=== PATIENT | male | born 1950 | race Caucasian/White ===

== ENCOUNTER 2016-10-15 10:55 | Outpatient (CLI) | payer BC ==
[~2016-10-15] VITALS: Ht 172.7 cm; Wt 106.4 kg
--- NOTE | ~2016-10-15 | HEMODYNAMI ---
PATIENT:CHAVO FAN MEDICAL RECORD: [id number] : 54 LOCATION:DMichaelCAT ADMISSION DATE: 10/15/16 Generatedon:10/15/201613:22 Patient name: CHAVO FAN Patient #: [id number] SSN: : Date of study: 10/15/2016 Page: Of Hemodynamic Procedure Report Patient Data Patient Demographics Procedure consent was obtained First Name: CHAVO Gender: Male Last Name: MENG : 1950 [facility] Initial: ALF Age: 66 year(s) Patient #: [id number] Race: Unknown Additional ID: [id number] Contact details [address]: [address] [place] [address] State: [place] City: [place] Zip code: [address] Past Medical History Allergies: No known allergies Admission Admission Data Admission Date: 10/15/2016 Admission Time: 10:55 Height (in.): 69 BSA: 2.21 (m2) Height (cm.): 175.26 BMI: 34.56 (kg/m2) Weight (lbs.): 234 Weight (kg.): 106.14 Lab Results Lab Result Date: 10/15/2016 Lab Result Time: 12:00 Biochemistry Name Units Result Min Max BUN mg/dl 24 --(----)-* 7 18 Creatinine mg/dl 0.9 --(-*--)-- 0.6 1.3 CBC Name Units Result Min Max Hematocrit % 41.8 -*(----)-- 42 54 Hemoglobin g/dl 14.8 --(-*--)-- 13.5 17.5 Coagulation Name Units Result Min Max INR units 1.07 --(--*-)-- 0.85 1.17 PT sec 13.7 --(--*-)-- 11.6 15 Procedure Procedure Types Cath Procedure Diagnostic Procedure LHC LHC w/Coronaries Miscellaneous Procedures Moderate Sedation up to 30 minutes Procedure Description Procedure Date Procedure Date: 10/15/2016 Procedure Start Time: 13:05 Procedure End Time: 13:17 Procedure Staff Name Function Alf Riley MD Performing Physician Sophie Garcia RT Scrub Michael Boggs RN Nurse Bruce Flores RT Monitor Procedure Data Cath Procedure Fluoroscopy Diagnostic fluoroscopy Total fluoroscopy Time: 1.6 time: 1.6 min min Diagnostic fluoroscopy Total fluoroscopy dose: 801 dose: 801 mGy mGy Contrast Material Contrast Material Type Amount (ml) Isovue 300 64 Entry Location Entry Primary Successful Side Size Upsize Upsize Entry Closure Aviles ccessful Closure Location (Fr) 1 (Fr) 2 (Fr) Remarks Device Remarks Radial Right 6 Fr Mechanical artery Short Compression Estimated blood loss: 5 ml Diagnostic catheters Device Type Used For End Catheter Placement Diagnostic Terumo 5Fr Procedure [place] 110cm catheter Procedure Complications No complications Procedure Medications Medication Administration Route Dosage Oxygen NC 2 l/min Lidocaine 2% added to field 20 Heparin Flush Bag added to field 2 bags (1000units/500ml NS) 0.9% NaCl I.V. 100 ml/hr Radial Cocktail I.A. 1 syringe (Verapomil 2mg/Nitro 400mcg/Heparin 1500units) Versed I.V. 1 mg Fentanyl I.V. 50 mcg Versed I.V. 1 mg Fentanyl I.V. 50 mcg Hemodynamics Rest BSA: 2.21 (m2) HGB: 14.8 (g/dl) O2 Consumption: Estimated: 274.21 (ml/min) O2 Co nsumption indexed: Estimated:124.08 (ml/min/m) Heart Rate: 89 (bpm) Pressure Samples Time Site Value (mmHg) Purpose Heart Use Rate(bpm) 13:07 LV 90/21,20 EDP 97 13:08 AO 89/48(67) Pullback 94 13:08 LV 81/9,14 Pullback 94 Gradients Valve Time Site 1 Site 2 Mean SEP/DFP Peak To Heart Use (mmHg) (sec/min) Peak Rate (mmHg) (bpm) Aortic 13:08 LV AO 0 11 0 94 81/9,14 89/48(67) Calculations Valve P-P Mean Valve Index Valve Source Name Gradient Area Flow (cm2) Aortic 0 0 0 0 Snapshots Pre Cath Intra NCS Post Cath Vital Signs Time Heart Resp SPO2 NIBP (mmHg) Rhythm Pain Sedation Rate (ipm) (%) Status Level (bpm) 12:53:00 92 14 99 128/90(102) A-Fib 0 (11) 10(A) , No pain 12:57:08 93 18 95 118/90(100) A-Fib 0 (11) 10(A) , No pain 13:01:16 97 17 98 108/72(101) A-Fib 0 (11) 10(A) , No pain 13:05:22 91 18 97 100/84(92) A-Fib 0 (11) 9(A) , No pain 13:09:34 92 16 96 92/58(74) A-Fib 0 (11) 9(A) , No pain 13:13:37 86 16 97 100/70(86) A-Fib 0 (11) 10(A) , No pain Medications Time Medication Route Dose Verified Delivered Reason Notes Effectiveness by by 12:55:59 Oxygen NC 2 l/min Alf Rodriguez used for [facility] Chavo Boggs RN procedure MD 12:56:06 Lidocaine 2% added 20ml Alf Milner for local to vial [facility] anesthetic field MD [place] 12:56:13 Heparin Flush added 2 bags Alf Milner used for Bag to [facility] procedure (1000units/500ml field MD [place] NS) 12:56:22 0.9% NaCl I.V. 100 Alf Rodriguez Per ml/hr [facility] Chavo Boggs RN physician 12:57:57 Versed I.V. 1 mg Alf Rodriguez for sedation [facility] Chavo Boggs RN, MD 12:58:04 Fentanyl I.V. 50 mcg Alf Rodriguez for sedation [facility] Chavo Boggs RN, MD 13:06:17 Radial Cocktail I.A. 1 Alf Milner for (Verapomil syringe [facility] vasodilation 2mg/Nitro MD [place] 400mcg/Heparin 1500units) 13:06:23 Versed I.V. 1 mg Alf Rodriguez for sedation [facility] Chavo Boggs RN, MD 13:06:26 Fentanyl I.V. 50 mcg Alf Rodriguez for sedation [facility] Chavo Boggs RN, MD Procedure Log Time Note 12:23:53 Patient Height : 175.26 cm 12:23:59 Patient Weight : 106.14 kg 12:24:44 Diagnostic Cath status Elective 12:24:46 Michael Boggs RN sent for patient. Start room use. 12:24:48 Time tracking: Regular hours 12:24:54 Plan of Care:Hemodynamics will remain stable., Cardiac rhythm will remain stable., Comfort level will be maintained., Respiratory function will remain adequate., Patient/ family verbilizes understanding of procedure., Procedure tolerated without complication., Recovers from procedure without complications.. 12:37:09 Patient received from Pre/Post Procedure Room to CCL 2 Alert and oriented. Tansferred to table in Supine position. 12:37:10 Warm blankets applied, and luis hugger turned on for patient comfort. 12:37:11 Correct patient and procedure confirmed by team. 12:37:13 Signed procedure consent form obtained from patient. 12:37:14 ECG and BP/O2 sat monitors applied to patient. 12:37:20 H&P Date Dictated: 10/15/2016 Within 30 days and on chart.. 12:37:21 Pre-procedure instructions explained to patient. 12:37:22 Pre-op teaching completed and patient verbalized understanding. 12:37:24 Family in patients room. 12:37:25 Patient NPO since Midnight. 12:37:34 Patient allergic to No known allergies 12:37:39 Is the patient allergic to Iodine/contrast media? No. 12:37:48 Is patient on blood thinner?Yes 12:40:20 Patient diabetic? No. 12:40:26 Previous problem with sedation/anesthesia? No ? 12:40:27 Snore? Yes 12:40:28 Sleep apnea? No 12:40:29 Deviated septum? No 12:40:31 Opens mouth fully? Yes 12:40:33 Sticks out tongue? Yes 12:40:34 Airway obstruction? No ? 12:40:36 Dentures? No ? 12:50:26 Modified Armaan's test Ulnar < 7 seconds 12:50:28 Patient pain scale 0/10 ?. 12:50:49 IV patent on arrival in left forearm with 0.9% NaCl at [facility]. 12:51:30 Lab Result : Creatinine 0.9 mg/dl 12:51:30 Lab Result : BUN 24 mg/dl 12:51:30 Lab Result : Hemoglobin 14.8 g/dl 12:51:30 Lab Result : Hematocrit 41.8 % 12:51:30 Lab Result : INR 1.07 units 12:51:30 Lab Result : PT 13.7 sec 12:51:34 Lab results completed and on chart. 12:51:36 Right Radial & Right Groin area was prepped with chlora-prep and draped in sterile fashion 12:51:43 Alarms reviewed by R. N. 12:51:44 Sharps counted by scrub and verified by R.N. 12:51:46 Use device set Radial Dx 12:51:47 MBrace Wrist Support opened to sterile field. 12:51:49 Tegaderm 4 x 4 opened to sterile field. 12:51:50 Acist Manifold opened to sterile field. 12:51:50 Acist Hand Control opened to sterile field. 12:51:51 Acist Syringe opened to sterile field. 12:51:52 Medline Cath Pack opened to sterile field. 12:51:52 Bag Decanter opened to sterile field. 12:51:53 Terumo 6Fr Slender Glidesheath opened to sterile field. 12:51:53 St Otto 260cm J .035 wire opened to sterile field. 12:51:57 Vital chart was started 12:51:59 Baseline sample Acquired. 12:52:15 Rhythm: atrial fibrillation 12:52:16 Full Disclosure recording started 12:55:59 Oxygen 2 l/min NC was administered by Michael Boggs RN; used for procedure; 12:56:06 Lidocaine 2% 20ml vial added to field was administered by Alf Riley MD; for local anesthetic; 12:56:13 Heparin Flush Bag (1000units/500ml NS) 2 bags added to field was administered by Alf Riley MD; used for procedure; 12:56:22 0.9% NaCl 100 ml/hr I.V. was administered by Michael Boggs RN; Per physician; 12:56:23 Physician arrived 12:56:23 --------ALL STOP TIME OUT------ 12:56:23 Final Timeout: patient, procedure, and site verified with staff and physician. All members of the team are in agreement. 12:56:35 Right Radial & Right Groin site verified by team. 12:56:37 Physical assessment completed. ASA score P 2 - A patient with mild systemic disease as per Alf Riley MD. 12:56:40 Sedation plan: IV Moderate Sedation Versed, Fentanyl 12:57:57 Versed 1 mg I.V. was administered by Michael Boggs RN; for sedation; 12:58:04 Fentanyl 50 mcg I.V. was administered by Michael Boggs RN; for sedation; 13:01:07 Zero performed for pressure channel P1 13:05:36 Procedure started. 13:05:40 Local anesthetic to right radial artery with Lidocaine 2% by Alf Riley MD.INITIAL ACCESS ONLY 13:05:47 A 6 Fr Short sheath was inserted into the Right Radial artery 13:06:11 A Diagnostic Terumo 5Fr [place] 110cm catheter was advanced over the wire and used for Procedure. 13:06:17 Radial Cocktail (Verapomil 2mg/Nitro 400mcg/Heparin 1500units) 1 syringe I.A. was administered by Alf Riley MD; for vasodilation; 13:06:23 Versed 1 mg I.V. was administered by Michael Boggs RN; for sedation; 13:06:26 Fentanyl 50 mcg I.V. was administered by Michael Boggs RN; for sedation; 13:08:00 LV gram done using ZARATE 13:08:02 Injector settings: Ml/sec: 5, Volume: 15, 13:08:12 EF : 55 % 13:08:49 RCA angiography performed. 13:09:25 RCA angiography performed. 13:12:45 Catheter removed. 13:13:04 Terumo TR Band Standard opened to sterile field. 13:13:10 Sheath removed intact; hemostasis achieved with Mechanical Compression to the Right Radial artery. 13:13:16 Procedure ended.(Physican Out) 13:14:19 Fluoroscopy time 01.60 minutes. 13:14:22 Fluoroscopy dose: 801 mGy 13:14:22 Flurop Dose total: 801 13:14:26 Contrast amount:Isovue 300 64ml. 13:14:27 Sharps counted by scrub and verified by R.N. 13:14:29 TR band inflated with 12cc of air. 13:14:30 Insertion/operative site no bleeding no hematoma. 13:14:38 Post right radial artery:stable, soft, clean and dry 13:14:40 Post Procedure Pulses reassessed and unchanged 13:14:44 Post-procedure physical assessment completed. ASA score P 2 - A patient with mild systemic disease as per Alf Riley MD. 13:14:46 Post procedure rhythm: unchanged. 13:14:48 Estimated blood loss: 5 ml 13:14:50 Post procedure instruction explained to patient.Patient verbalizes understanding. 13:14:50 Patient needs reinforcement of post procedure teaching. 13:16:35 Procedure type changed to Cath procedure, Diagnostic procedure, LHC, LHC w/Coronaries, Miscellaneous Procedures, Moderate Sedation up to 30 minutes 13:16:51 Procedure and supply charges have been captured, reviewed, submitted and are correct. 13:16:55 Procedure Complication : No complications 13:16:57 Vital chart was stopped 13:16:57 See physician's report for complete and final results. 13:16:58 Report given to Pre/Post Procedure Room. 13:17:02 Patient transfered to Pre/Post Procedure Room with Stretcher. 13:17:04 Procedure ended. 13:17:04 Full Disclosure recording stopped 13:17:14 End room use (Document Last) Device Usage Item Name Manufacture Quantity Catalog Hospital Part Current Minimal Lot# / Number Charge Number Stock Stock Serial# Code [place] [address] 140-0250-00 [id number] [id number] [id number] 5 Wrist Vascular Support Dynamics Tegaderm 4 3M 1 [id number] [id number] [id number] 354286 5 x 4 Acist Acist 1 24775 541476 396340 998886 5 Manifold [employer] Inc Acist Hand Acist 1 33354 864353 404107 572319 5 Control Medical Systems Inc Acist Acist 1 02289 014993 210731 574746 20 Syringe Medical Systems Inc Medline Cardinal 1 [id number] 85999 025430 5 Cath Pack Health Bag Microtek 1 2001S 605426 79710 901255 5 Decanter [employer] Inc. Terumo 6Fr Terumo 1 [id number] 559263 757220 878405 [address] St Otto 1 350481 604532 836341 816224 30 260cm J .035 wire Diagnostic Terumo 1 [id number] [id number] 075961 376503 5 Terumo 5Fr [place] 110cm catheter Terumo TR Terumo 1 [id number] 582936 095165 40 Band Standard Signature Audit [place] Stage Time Signature Unsigned Intra-Procedure 10/15/2016 Bruce Flores 1:21:58 PM RT(R) Signatures Monitor : Bruce Flores RT Signature : Date : Time : [facility] [address] [facility] [facility] [place] [address]
[2016-10-15] MEDS ORDERED: COUMADIN5 MG PO (11:09)
[2016-10-15] MEDS ORDERED: PRAVACHOL40 MG PO (11:13)
[2016-10-15] MEDS ORDERED: COREG12.5 MG PO (11:14)
[2016-10-15] MEDS ORDERED: BETAPACE 80 MG80 MG PO (11:14)
[2016-10-15] MEDS ORDERED: RELAFEN500 MG PO (11:15)
[2016-10-15 11:19] VITALS: BP 132/96; Ht 172.7 cm; Wt 106.4 kg
[2016-10-15 11:38] LABS: BASOPHILS 0.7 % (0-2); EOSINOPHILS 3.7 % (0-7); HEMATOCRIT 41.8 % (42.0-54.0); HEMOGLOBIN 14.8 g/dL (13.5-17.5); IMMATURE GRANULOCYTES 0.4 % (0-5); LYMPHOCYTES 23.2 % (15-50); MCH 35.2 pg (26.0-34.0); MCHC 35.4 g/dL (31.0-37.0); MCV 99.3 fL (80.0-100.0); MEAN PLATELET VOLUME 9.7 fL (7.4-10.4); MONOCYTES 11.4 % (2-11); NEUTROPHILS 60.6 % (40-80); PLATELET COUNT 194 10x3/uL (130-400); RBC 4.21 10x6/uL (4.20-6.10); RDW 12.2 % (11.5-14.5); WBC 5.6 10x3/uL (4.8-10.8)
[2016-10-15 11:49] LABS: INR 1.07 (0.85-1.17); PROTIME 13.7 SECONDS (11.6-15.0)
[2016-10-15 11:51] LABS: CALC OSMOLALITY 279 mosm/kg (275-300); CALCIUM 8.9 mg/dL (8.5-10.1); CARBON DIOXIDE 25.5 mmol/L (21.0-32.0); CHLORIDE - SERUM 104 mmol/L (98-107); CREATININE - SERUM 0.9 mg/dL (0.6-1.3); GLUCOSE 106 mg/dL (74-106); POTASSIUM - SERUM 4.5 mmol/L (3.5-5.1); SODIUM 138 mmol/L (136-145); UREA NITROGEN 24 mg/dL (7-18); eGFR NON AFRICAN AMERICAN 90 mL/min (90-120)
--- NOTE | 2016-10-15 13:45 | NUR ---
TR BAND TO RIGHT WRIST CDI, NO BLEEDING OR HEMATOMA AT SITE. AT SIDE
--- NOTE | 2016-10-15 14:00 | NUR ---
TR BAND CDI, NO BLEEDING OR HEMATOMA AT SITE, AT SIDE, DENIES NEEDS
--- NOTE | 2016-10-15 15:50 | NUR ---
TR BAND OFF- BAND AID APPLIED AND BRACE REAPPLIED, NO HEMATOMA OR BLEEDING AT SITE, IV D'C WITH CATH TIP INTACT, WRITTEN AND VERBAL D'C INSTRUCTIONS GIVEN TO PT AND - VERBAL UNDERSTANDING NOTED. D'C HOME WITH
--- NOTE | 2016-10-17 13:55 | HP ---
PATIENT: CHAVO FAN MEDICAL RECORD: [id number] ACCOUNT: [id number] LOCATION:[facility] : 54 ADMISSION DATE: 10/15/16 HISTORY AND PHYSICAL EXAMINATION HISTORY OF PRESENT ILLNESS: A 66-year-old gentleman seen at the inpatient clinic with the new onset atrial fibrillation, dyspnea, chest tightness consistent with atrial fibrillation versus angina, underwent ischemic workup and found to have reversible ischemia. He was admitted for diagnostic angiography, ischemia is known inferiorly. PAST MEDICAL HISTORY: 1. Hypertension. 2. Hyperlipidemia. 3. Atrial fibrillation, recent onset. SOCIAL HISTORY: Nonsmoker, nondrinker. ALLERGIES: None known. REVIEW OF SYSTEMS: The patient reports easy bruising but reports no swollen glands. The patient reports no fever, no night sweats, no significant weight gain, no significant weight loss. No significant exercise tolerance. The patient reports no dry eyes, no irritation, no vision change. Patient reports no difficulty hearing and no ear pain. Patient reports no frequent nose bleeds or nose and sinus problems. Patient reports on arm pain on exertion. No shortness of breath while lying down. No history of heart murmur. Patient reports no cough, no wheezing or coughing up blood. Patient reports no abdominal pain, no vomiting. Normal appetite. No diarrhea and not vomiting blood. No nausea and no constipation. Patient reports no incontinence. No difficulty urinating. No hematuria. No increased frequency. Patient reports no muscle aches. No weakness, no arthralgias, no back pain. No swelling of the extremities. Patient reports no abnormal mole, no jaundice, no rashes. Reports no loss of consciousness. No weakness and no numbness. No seizures, dizziness, or headaches. The patient reports no depression, no sleep disturbance, feeling safe in a relationship and no alcohol abuse. Patient reports on fatigue. Reports no runny nose or sinus pressure. No itching, no hives, and no frequent sneezing. PHYSICAL EXAMINATION: GENERAL: Pleasant gentleman in no acute distress, appears stated age. HEENT: Normocephalic, atraumatic. NECK: No bruits. HEART: Irregular, rate controlled. LUNGS: Good air excursion. ABDOMEN: Soft, nontender. EXTREMITIES: Pulse 2+ with no edema. IMPRESSION: Angina, inferior ischemia on noninvasive study. PLAN: Diagnostic angiography, intervention based on the above. TRANSINT:[id number] Voice Confirmation ID: [id number] DOCUMENT ID: [id number] HISTORY AND PHYSICAL [id number] CHAVO FAN,SUNDAY Koenig MD at 1355 CC: [id number] DICTATION DATE: 10/15/16 1301 SUPERVISOR INSTRUMENT MAINTENANCE: 10/15/16 1510 [facility] CLI 10/15/16 [place] [id number] [place] [id number]
--- NOTE | 2016-10-17 13:55 | OP ---
PATIENT NAME: CHAVO FAN MEDICAL RECORD: [id number] :54 LOCATION:D.CAT ADMISSION DATE: SURGEON: SUNDAY AGUILAR MD DATE OF OPERATION: 10/15/2016 PROCEDURES: Left heart catheterization, selective coronary angiography, right radial approach. CATHETERS: [place] catheter, radial sheath. The procedure was well tolerated. The patient returned to lopez. Sheath was removed. TR band was placed. FINDINGS: Left ventriculography in 30-degree ZARATE view: Normal wall motion, normal systolic function. CORONARY ANATOMY: LEFT MAIN: Left main tapers about 70% stenosis. LAD: Best seen in the AP straight view, shows 80%-90% stenosis in proximal portion. CIRCUMFLEX: One large OM with 80% stenosis. RIGHT CORONARY ARTERY: Dominant artery, gives rise to PDA, free of disease. IMPRESSION: Left main disease. Given disease in the LAD and OM as well, probably best served for coronary bypass grafting. Dr. Gayle is to consult for this purpose. TRANSINT:[id number] Voice Confirmation ID: [id number] DOCUMENT ID: [id number] SUNDAY AGUILAR MD at 1355 CC: [id number] DICTATION DATE: 10/15/16 1322 VAMP STITCHER: 10/15/162022 [facility] CLI 10/15/16 [place] [id number] [place] [address]
== END 2016-10-15 16:00 | disposition home or self-care (01) ==
LOC: D.CATH 10:55
PROVIDERS: Internal Medicine Rheumatology
DX: I20.9 Angina pectoris, unspecified (principal); I48.91 Unspecified atrial fibrillation; I10 Essential (primary) hypertension; R94.31 Abnormal electrocardiogram [ECG] [EKG]; E78.5 Hyperlipidemia, unspecified; Z01.812 Encounter for preprocedural laboratory examination

== ENCOUNTER → 2016-10-16 16:06 | Outpatient (CLI) | payer BC ==
[2016-10-15 11:19] VITALS: BMI 35.6
[~2016-10-16 16:06] MED LIST: BETAPACE 80 MG80 MG PO; COREG12.5 MG PO; COUMADIN5 MG PO; PRAVACHOL40 MG PO; RELAFEN500 MG PO
== END | disposition home or self-care (01) ==
LOC: D.LAB 16:00 → D.US 16:30
DX: I25.10 Atherosclerotic heart disease of native coronary artery without angina pectoris (principal); Z01.812 Encounter for preprocedural laboratory examination; R09.89 Other specified symptoms and signs involving the circulatory and respiratory systems

== ENCOUNTER 2016-10-28 05:00 | Inpatient (IN) | payer BC ==
--- NOTE | 2016-10-19 12:51 | HP ---
PATIENT: CHAVO FAN MEDICAL RECORD: [id number] ACCOUNT: [id number] LOCATION:[facility] : 54 ADMISSION DATE: 10/28/16 HISTORY AND PHYSICAL EXAMINATION NameCHAVO FAN (66yo, M) ID# [id number]. Date/Time10/16/2016 02:[id number] [facility] Dept.NP_[facility] ClinicProviderEDFRANK CORDOVA MDInsuranceMed Primary: [place] Insurance # : [id number] Policy/Group # : [id number] Referring Provider Name : SAKSHI YOST Employer Name : UNKNOWN Med Secondary: [employer] Insurance # : [id number] Employer Name : UNKNOWN Prescription: CMX - Member is eligible. Prescription: OPTUMCOM - Member is ineligible. Patient found on payor's files, but not covered on date of inquiry. Chief Complaint Coronary artery disease referral for CABG evaluation Patient's Care Team Referring Provider (): SAKSHI YOST: [address] [place] [id number], , Steam Flattener: SUNDAY AGUILAR MD Patient's Pharmacies [facility] [address] (ERX): [address] [place] [id number], , Vitals BP:134/80 sitting L arm 10/16/2016 02:31 pmBP Cuff Size:adult 10/16/2016 02:31 pmHR:88,irreg 10/16/2016 02:31 pmHt:5 ft 8 in 10/16/2016 02:33 pmWt:233 lbs 10/16/2016 02:33 pmNotes:"could feel like butterflies in my chest sometimes, and I have felt really tired. I have some shortness of breath when I walk up a hill or do something strenuous. The fatigue is really the thing that bothers me." 10/16/2016 02:34 pmBMI:35.4 10/16/2016 02:33 pmAllergies Reviewed Allergies NKDAMedications Reviewed Medications Fluvirin [id number] 45 mcg (15 mcg x 3)/0.5 mL intramuscular suspension ADM 0.5ML IM UTD11/08/15 filledsurescriptsgentamicin 0.3 % eye drops06/19/16 filledCaremarknabumetone 500 mg tablet Take 1 tablet(s) twice a day by oral route.10/15/16 enteredCindy Brownpravastatin 40 mg tablet Take 1 tablet(s) every day by oral route.10/15/16 enteredCindy Brownsotalol 80 mg tablet Take 1 tablet(s) twice a day by oral route.10/15/16 enteredCindy Brownwarfarin 5mg daily10/15/16 enteredCindy BrownProblems Reviewed Problems Coronary arteriosclerosis - Onset: 10/15/2016 Family History Discussed Family History Father- Heart diseaseSocial History Discussed Social History HISTORY AND PHYSICAL [id number] CHAVO FAN Cardiology Family history of heart disease?: Y Smoking Status: Former smoker (Notes: quit 1987) High Cholesterol: Y High blood pressure: Y Overweight: Y Diabetes: N Alcohol intake: Moderate Occupation: licensed journeyman electrician Surgical History Reviewed Surgical History Other - Left hand surgery Other - hip surgery Other - appendectomy Past Medical History Discussed Past Medical History Atrial fibrillation: Y Coronary Artery Disease: Y High Blood Pressure: Y Hyperlipidemia: Y Joint Pain or Swelling: Y - arthritis knee Pain in legs when walking: Y - arthritis knee Documents for Discussion N/A Screening None recorded. HPI Dyspnea Reported by patient. Quality: dyspnea Severity: limits activity Context: walking up inclines Fatigue Reported by patient. Quality: symptoms worse during the day Severity: normal sleep patterns; change in exercise habits; changes in normal activities Duration: symptoms lasting over 2 weeks Timing: worse Associated Symptoms: no drug/alcohol withdrawal; no depression; no anxiety; no sleep disturbances; no snoring; periods of not breathing (apnea) have not been observed; no recent change in weight coronary artery disease left main ROS Patient reports exercise intolerance but reports no fever, no night sweats, no significant weight gain, and no significant weight loss. He reports palpitations but reports no chest pain, no arm pain on exertion, no shortness of breath when walking, no shortness of breath when lying down, and no known heart murmur. He reports arthralgias/joint pain but reports no muscle aches, no muscle weakness, no back pain, and no swelling in the extremities. He reports no dry eyes, no irritation, and no vision change. He reports no difficulty hearing and no ear pain. He reports no frequent nosebleeds and no nose/sinus problems. He reports no sore throat, no bleeding gums, no snor i ng, no dry mouth, no mouth ulcers, no oral HISTORY AND PHYSICAL [id number] BALTZ,CHAVO SUNDAY abnormalities, and no teeth problems. He reports no jugular vein distension and no swollen glands. He reports no cough, no wheezing, no shortness of breath, and no coughing up blood. He reports no abdominal pain, no vomiting, normal appetite, no diarrhea, not vomiting blood, no nausea, and no constipation. He reports no incontinence, no difficulty urinating, no hematuria, and no increased frequency. He reports no abnormal mole, no jaundice, and no rashes. He repor t s no loss of consciousness, no weakness, no numbness, no seizures, no dizziness, and no headaches. He reports no depression, no sleep disturbances, feeling safe in relationship, and no alcohol abuse. He reports no fatigue. He reports no swollen glands and no bruising. He reports no runny nose, no sinus pressure, no itching, no hives, and no frequent sneezing. ROS as noted in the HPI Physical Exam Patient is a 66-year-old male. Constitutional: General Appearance healthy-appearing and obese. Level of Distress NAD. Ambulation ambulating normally. Cardiovascular: Apical Impulse not displaced or no thrill. Heart Auscultation normal s1 and s2; no murmurs, rubs, or gallops; and irregularly irregular. Arterial Pulses no abdominal aorta bruits, femoral bruits, or popliteal bruits and 2+ bilateral, carotid 2+ bilateral, femoral 2+ bilateral, popliteal 2+ bilateral, and dorsalis pedis 2+ bilateral. Edema no edema or varicosities. Lungs: Repiratory Effort no dyspnea. Percussion no hyperresonance or dullness or flatne ss. Auscultation no wheezing, rhonchi, or rales / crackles and breathing sounds normal, good air movement, and CTA except as noted. Abdomen: Bowl Sounds normal. Inspection and Palpation no tenderness, guarding, masses, or rebound tenderness and soft and non-distended. Liver non-tender and no hepatomegaly. Spleen non-tender and no splenomegaly. Hernia none palpable. Musculoskeletal System: Gait And Stance normal gait and stance. Digits and Nails normal nails and no cyanosis. Joints, Bones, and Muscles limited ROM (right leg) and abnormal strength. Neurologic: Cranial Nerves grossly intact. Reflexes DTRs 2+ bilaterally throughout. Sensation grossly intact. Lymph Nodes: Lymph Nodes no cervical LAD, supraclavicular LAD, axillary LAD, or inguinal LAD. Eyes: Lids and Conjunctivae no discharge or pallor and non-injected. Pupils PERRLA. Cornea grossly intact. EOM EOMI. Lens clear. Sclerae non-icteric. Neck: Neck no masses, enlarged lymph nodes, or carotid bruits and supple and trachea midline; bull neck. Thyroid no enlargement or nodules and non-tender. Skin: Inspection and Palpation no rash, lesions, ulcers, jaundice, or abnormal nevi. Assessment / Plan occlusive coronary artery disease 1. Coronary arteriosclerosis I25.10: Atherosclerotic heart disease of [place] coronary artery without angina HISTORY AND PHYSICAL [id number] CHAVO FAN pectoris Discussion Notes The patient would benefit from coronary artery bypass. I have discussed his disease process with him and his family in detail as well as the alternative methods of treatment we discussed coronary artery bypass including the expected benefits and risk which include bleeding, infection, stroke, , and the imponderables. He understands all of the above and wishes to proceed with planned surgery . Stop Coumadin 23 October and scheduled coronary bypass for the 28 of October LING CORDOVA MD at 1251 CC: [id number] DICTATION DATE: 10/16/16 1415 ENAMEL APPLIER: KAVYA 10/17/16 1126 PRE IN [facility] [address] [place] [address]
[2016-10-25 13:05] LABS: BASOPHILS 0.3 % (0-2); EOSINOPHILS 4.1 % (0-7); HEMATOCRIT 42.3 % (42.0-54.0); HEMOGLOBIN 15.2 g/dL (13.5-17.5); IMMATURE GRANULOCYTES 0.2 % (0-5); LYMPHOCYTES 21.8 % (15-50); MCH 35.2 pg (26.0-34.0); MCHC 35.9 g/dL (31.0-37.0); MCV 97.9 fL (80.0-100.0); MEAN PLATELET VOLUME 9.5 fL (7.4-10.4); MONOCYTES 11.3 % (2-11); NEUTROPHILS 62.3 % (40-80); PLATELET COUNT 201 10x3/uL (130-400); RBC 4.32 10x6/uL (4.20-6.10); WBC 6.4 10x3/uL (4.8-10.8)
[2016-10-25 13:14] LABS: HEMOGLOBIN A1C 6.2 % (4.8-6.0)
[2016-10-25 13:20] LABS: APTT 29.4 SECONDS (22.8-39.4); INR 1.19 (0.85-1.17); PROTIME 14.9 SECONDS (11.6-15.0)
[2016-10-25 13:34] LABS: APPEARANCE CLEAR (CLEAR); BILIRUBIN NEGATIVE (NEGATIVE); COLOR YELLOW (YELLOW); GLUCOSE NEGATIVE (NEGATIVE); KETONE NEGATIVE (NEGATIVE); NITRITE NEGATIVE (NEGATIVE); PROTEIN NEGATIVE (NEGATIVE); SPECIFIC GRAVITY 1.015 (1.005-1.020); UROBILINOGEN NORMAL (NORMAL)
[2016-10-25 13:35] LABS: ALKALINE PHOSPHATASE 38 U/L (46-116); ALT (SGPT) 29 U/L (10-68); CALC OSMOLALITY 273 mosm/kg (275-300); CALCIUM 8.9 mg/dL (8.5-10.1); CARBON DIOXIDE 28.4 mmol/L (21.0-32.0); CHLORIDE - SERUM 101 mmol/L (98-107); CHOLESTEROL, TOTAL 193 mg/dL (0-200); GLUCOSE 92 mg/dL (74-106); PHOSPHOROUS 3.1 mg/dL (2.5-4.9); POTASSIUM - SERUM 4.6 mmol/L (3.5-5.1); PROTEIN - SERUM 7.5 g/dL (6.4-8.2); SODIUM 135 mmol/L (136-145); THYROID STIMULATING HORMONE 3.33 uIU/mL (0.36-3.74); UREA NITROGEN 23 mg/dL (7-18); URIC ACID 3.7 mg/dL (2.6-7.2); eGFR NON AFRICAN AMERICAN 80 mL/min (90-120)
[2016-10-25 13:36] LABS: BACTERIA FEW /hpf (NONE SEEN); EPITHELIAL CELLS OCC /hpf (0-5); LEUKOCYTE ESTERASE TRACE (NEGATIVE); MUCUS <1+ /lpf (NONE SEEN); RED CELLS - URINE RARE /hpf (0-5); WHITE CELLS - URINE 0-5 /hpf (0-5)
[2016-10-25 13:37] LABS: T4 THYROXIN - FREE 1.11 ng/dL (0.76-1.46)
[2016-10-25 13:42] LABS: COLD SCREEN @ 4 DEGREES NEGATIVE (NEGATIVE); COLD SCREEN ROOM TEMP NEGATIVE (NEGATIVE)
[2016-10-28] VITALS (34 sets, daily range): BP systolic 96–136; BP diastolic 64–773; BMI 35.1; BMI 38.2
[~2016-10-28] VITALS: Ht 172.7 cm; Wt 114.2 kg
[~2016-10-28 05:00] MED LIST changes: +BAYER CHEWABLE81 MG PO
[2016-10-28 09:04] LABS: PLT FUNCT.(P2Y12) PLAVIX 239 PRU (194-418)
[2016-10-28 14:52] LABS: MCH 35.4 pg (26.0-34.0); MCHC 36.5 g/dL (31.0-37.0); MCV 97.1 fL (80.0-100.0); MEAN PLATELET VOLUME 9.1 fL (7.4-10.4); RBC 2.06 10x6/uL (4.20-6.10); RDW 11.9 % (11.5-14.5); WBC 7.1 10x3/uL (4.8-10.8)
[2016-10-28 15:07] LABS: APTT 37.9 SECONDS (22.8-39.4); INR 1.93 (0.85-1.17); PROTIME 22.1 SECONDS (11.6-15.0)
[2016-10-28 15:34] LABS: HEMOGLOBIN 7.3 g/dL (13.5-17.5); PLATELET COUNT 77 10x3/uL (130-400)
[2016-10-28 16:18] LABS: PLATELET ESTIMATE DECREASED
[2016-10-28 18:01] LABS: CALC OSMOLALITY 296 mosm/kg (275-300); CALCIUM 7.4 mg/dL (8.5-10.1); CARBON DIOXIDE 23.3 mmol/L (21.0-32.0); CHLORIDE - SERUM 112 mmol/L (98-107); CREATININE - SERUM 0.8 mg/dL (0.6-1.3); GLUCOSE 163 mg/dL (74-106); POTASSIUM - SERUM 4.1 mmol/L (3.5-5.1); SODIUM 146 mmol/L (136-145); UREA NITROGEN 17 mg/dL (7-18); eGFR NON AFRICAN AMERICAN > 90 mL/min (90-120)
--- NOTE | 2016-10-28 18:05 | NUR ---
AT BEDSIDE. UPDATE PROVIDED. PT MORE ALERT.
--- NOTE | 2016-10-28 19:00 | NUR ---
DR CORDOVA CALLED AND UPDATED ON LATEST ABG'S AND STATUS. ASKED FOR FLUID CHALLENGE. ALSO WANTS LEVO WEANED.
--- NOTE | 2016-10-28 19:30 | NUR ---
REPORT RECIEVED. ASSESSMENT COMPLETED. SEE FLOW SHEET FOR FURTHER DETAILS. PT NODS HIS HEAD APPROP TO COMMUNICATION WHILE ON VENT. CHEST TUBES X3 NOTED TO 20 CM SUCTION WITH NO LEAKS NOTED. CM SINUS TACH. TPM SENSING WITH WIRES SECURED TO CHEST. INVOS LT 67 RT 68. ALARMS ON, WILL CONTINUE 1 TO 1 NURSING CARE.
--- NOTE | 2016-10-28 19:48 | NUR ---
DR TUTTLE NOTIFIED PHYSICIAN DELICATESSEN DEPARTMENT MANAGER THAT DR YOST HAS A CONSULT
--- NOTE | 2016-10-28 19:55 | NUR ---
CPAP TRAILS STARTED. WILL CONTINUE 1 ON 1 NURSING CARE.
--- NOTE | 2016-10-28 21:30 | NUR ---
ABG RESULTED PT STILL WITH APNIC PERIODS WILL CONTINUE WITH CPAP.
--- NOTE | 2016-10-28 22:44 | NUR ---
EXTUBAED TO 4L NC WRIST RESTRAINTS DC'D. PT ALERT AND ORIENTED TO SITUATION. NO COMPLAINTS AT THIS TIME. CONTINUE 1 TO 1 NURSING CARE.
--- NOTE | 2016-10-28 23:00 | NUR ---
REASSESSMENT COMPLETED. NO ACUTE CHANGES AT THIS TIME. PT EDUCATED ON COUGHING AND DEEP BREATHING. IS DONE WITH A BEST EFFORT OF 750. PT POSITIONED FOR COMFORT. WILL CONTINUE 1 ON 1 NURSING CARE.
[2016-10-29] VITALS (97 sets, daily range): BP systolic 90–120; BP diastolic 54–72
--- NOTE | 2016-10-29 01:00 | NUR ---
PT REPOSITIONED FOR COMFORT. PT RECIEVING ICE CHIPS NO NAUSEA NOTED. WILL CONTINUE 1 ON 1 NURSING CARE.
--- NOTE | 2016-10-29 03:00 | NUR ---
REASSESSMENT COMPLETED. NO ACUTE CHANGES AT THIS TIME. STARTING TO WEAN DOPAMINE, WITH ADEQUATE CO. IS CONTINUING TO IMPROVE. DEEP BREATHING AND COUGHING WITH GOOD EFFORT.
--- NOTE | 2016-10-29 03:42 | NUR ---
PT POSITIONED FOR COMFORT. PT TAKING ICE CHIPS NO NAUSEA NOTED. COPPERATIVE WITH COUGHING AND DEEP BREATHING. WILL CONTINUE 1 ON 1 NURSING CARE.
--- NOTE | 2016-10-29 04:06 | NUR ---
XRAY DONE PT POSITONED FOR COMFORT WILL CONTINUE 1 ON 1 NURSING CARE.
--- NOTE | 2016-10-29 05:00 | NUR ---
PT RT LEG DRESSINGS CHANGED PER ORDER TIME AND INITIALED. CLEAN LINENS PROVIDED WITH BATH. PT IS DRINKING SMALL SIPS OF WATER HANDLING THEM WELL WITH NO NAUSEA. PT POSITIONED FOR COMFORT. WILL CONTINUE 1 ON 1 NURSING CARE.
--- NOTE | 2016-10-29 06:00 | NUR ---
AT BEDSIDE, UPDATE GIVEN. WILL CONTINUE 1 ON 1 NURSING CARE.
[2016-10-29 06:07] LABS: MCH 33.2 pg (26.0-34.0); MEAN PLATELET VOLUME 9.3 fL (7.4-10.4); RDW 15.5 % (11.5-14.5); WBC 6.8 10x3/uL (4.8-10.8)
[2016-10-29 06:17] LABS: HEMOGLOBIN 9.1 g/dL (13.5-17.5); MCV 94.9 fL (80.0-100.0); RBC 2.74 10x6/uL (4.20-6.10)
[2016-10-29 06:36] LABS: ALBUMIN 3.5 g/dL (3.4-5.0); ALKALINE PHOSPHATASE 13 U/L (46-116); ALT (SGPT) 24 U/L (10-68); CALC OSMOLALITY 293 mosm/kg (275-300); CALCIUM 7.6 mg/dL (8.5-10.1); CARBON DIOXIDE 24.8 mmol/L (21.0-32.0); CHLORIDE - SERUM 111 mmol/L (98-107); CREATININE - SERUM 0.9 mg/dL (0.6-1.3); GLUCOSE 135 mg/dL (74-106); POTASSIUM - SERUM 4.4 mmol/L (3.5-5.1); PROTEIN - SERUM 5.2 g/dL (6.4-8.2); SODIUM 145 mmol/L (136-145); UREA NITROGEN 20 mg/dL (7-18); eGFR NON AFRICAN AMERICAN 90 mL/min (90-120)
--- NOTE | 2016-10-29 07:12 | NUR ---
SHIFT ASSESSMENT COMPLETE. SEE FLOWSHEET FOR FINDINGS. PT AWAKENS EASILY. ANSWERS APPROPRIATELY. DR YOST IN ROOM CURRENTLY TO SEE PATIENT.
--- NOTE | 2016-10-29 08:22 | NUR ---
12.5ML OF 40MEQ POTASSIUM INITATED TO COVER PROTOCOL.
--- NOTE | 2016-10-29 08:44 | NUR ---
IPPB IN PROCESS
--- NOTE | 2016-10-29 09:13 | NUR ---
AT BEDSIDE AT THIS TIME.
--- NOTE | 2016-10-29 09:42 | NUR ---
DR AGUILAR OFFICE CALLED REGARDING CONSULT. SPOKE WITH LINDA.
--- NOTE | 2016-10-29 11:38 | NUR ---
PT BP FROM LEFT RADIAL ART LINE DROPPED TO UPPER 70'S TO LOW 80'S SYSTOLIC. CALLED FOR ABG'S AND NIBP TAKEN. THAT READING WAS 86/46. ABG'S REVIEWED. NO MAJOR ABNORMALITIES. FINN ESCAMILLA RN PAGED. C.O. REMAINS CONSISTENT, U.O. REMAINS CONSISTENT, DOES C.T. OUTPUT. PT WAS GIVEN ORAL DOSE OF SOTALOL AT10:30. DOPAMINE HAD BEEN REDUCED FROM 4.5 MCG/KG/MIN TO 4MCG/KG/MIN AT 1100. WILL CONTINUE TO MONITOR AND ALERT FOR ANY ADDITIONAL S/S THAT NEED TO BE REPORTED.
--- NOTE | 2016-10-29 12:02 | NUR ---
POTASSIUM REPLACEMENT PER PROTOCOL INITIATED VIA BAG ALREADY HANGING
--- NOTE | 2016-10-29 12:09 | NUR ---
AT BEDSIDE. UPDATE GIVEN. PT REPOSITIONED FOR COMFORT.
--- NOTE | 2016-10-29 13:20 | NUR ---
SUBSTERNAL DRESSING OVER CHEST TUBES AND TEMP PACEMAKER CHANGED PER ORDER. SURGICAL SITES WNL. DRESSING DATED AND INITIALED.
--- NOTE | 2016-10-29 14:23 | NUR ---
PT JUST FINISHED IPPB. NOW RESTING.
--- NOTE | 2016-10-29 14:38 | NUR ---
CASE MANAGEMENT IN ROOM TALKING WITH PATIENT.
--- NOTE | 2016-10-29 15:03 | NUR ---
* Is the patient Alert and Oriented? Yes 0 * How many steps to enter\exit or inside your home? 3 0 * PCP Dr. Franco 0 * Pharmacy [facility] 0 * Preadmission Environment Home with Family 0 * ADLs Independent 0 * List name and contact numbers for known caregivers / representatives who currently or will assist patient after discharge: Spouse - Steffi Morillo [phone] 0 * Additional services required to return to the preadmission environment? No 0 * Can the patient safely return to the preadmission environment? Yes 0 * Has this patient been hospitalized within the prior 30 days at any hospital? No Patient Name: CHAVO FAN Admission Status: Elective Accout number: [id number] Admission Date: 10-28-2016 : 1950 Admission Diagnosis: Attending: LING CORDOVA Current LOS: 1 Anticipated DC Date: 11-04-2016 Planned Disposition: Home Primary Insurance: [employer] [facility] Discharge Planning Comments: CM met with patient to assess dc plans/needs. Patient states he lives at home with his . 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 He does not use any DME. At dc, he plans to return home with his . He is open to home health services if necessary. CM will follow & assist as needed. Personal Lines Account Executive: Dorie Mcclure
--- NOTE | 2016-10-29 15:05 | NUR ---
AT BEDSIDE FOR VISITATION.
--- NOTE | 2016-10-29 18:00 | NUR ---
AT BEDSIDE FOR VISITATION.
--- NOTE | 2016-10-29 18:21 | NUR ---
IPPB IN PROGRESS
--- NOTE | 2016-10-29 18:26 | NUR ---
ASKED IF PATIENT WAS EXPECTED TO FEED HIMSELF WHILE HE'S ON PAIN MEDICATION. LET HER KNOW HE WAS. THEN ASKED WHY HE WASN'T AWAKENED WHEN HIS TRAY CAME. PT HAD C/O LITTLE SLEEP, LET HIM SLEEP AND DIDN'T WAKE HIM SINCE HE WAS RESTING WELL. SHE WAS WORRIED HE WAS GOING TO [place]ARVE. LET HER KNOW HE COULD GO SEVERAL DAYS WITHOUT EATING AND STILL BE OK, BECAUSE HE IS ON FLUIDS AND IT IS MORE OF A WORRY OF DEHYDRATION.
--- NOTE | 2016-10-29 18:43 | NUR ---
PT IN A-FIB. DR. CORDOVA NOTIFIED. HE HAS HX OF. GETS 80MG SOTALOL BID.
--- NOTE | 2016-10-29 18:55 | NUR ---
REC'D TO CARE, DR. CORDOVA AT . [facility]. ABGS RESULTED AND NEW ORDERS REC'D. WILL WEAN DOPAMINE PER ORDERS.
--- NOTE | 2016-10-29 19:20 | NUR ---
NEOSYNEPHRINE GTT INTIATED PER ORDERS.
--- NOTE | 2016-10-29 19:40 | NUR ---
PHYTOPATHOLOGY TEACHER PER FLOWSHEET, PT ALERT AND ORIENTED, DENIES NEEDS. CM - UCAF. WEANING DOPAMINE TOLERATED. R JOSE CARLOS BEE TO VIGILANCE - SEE FLOWSHEET. CT X 3 NOTED - TO 20CM SXN, NO AIR LEAK, LIGHT BLOODY DRAINAGE NOTED.. CRITICORE MANCUSO PATENT. ALARMS ON . WILL CONT 1:1 NURSING CARE.
--- NOTE | 2016-10-29 21:00 | NUR ---
DR. CORDOVA UPDATED ON PT, NO NEW ORDERS. AT BS - UPDATE GIVEN AND QUESTIONS ANSWERED.
--- NOTE | 2016-10-29 22:00 | NUR ---
PT UP IN BED, RT AT BS FOR IPPB. DOPAMINE OFF. SBP 90-100. HR 110-120S.
--- NOTE | 2016-10-29 22:54 | NUR ---
REASSESSMENT PER FLOWSHEET. NO ACUTE CHANGES. PT RESTING QUIETLY, DENIES PAIN OR SOB. REPOSITIONED FOR COMFORT. I.S. TO 1000. DIRECTOR OF STUDENT FINANCIAL AID COUGH AT THIS TIME. HR 100S - 120. ALARMS ON. CONT 1:1 NURSING CARE.
--- NOTE | 2016-10-29 23:10 | NUR ---
FEVER BREAKING - COOL WASH CLOTH TO FOREHEAD. DENIES OTHER NEEDS.
[2016-10-30] VITALS (96 sets, daily range): BP systolic 82–117; BP diastolic 46–75; Ht 172.7 cm; Wt 114.2 kg
--- NOTE | 2016-10-30 00:52 | NUR ---
COMPLETE BATH AND LINEN CHANGE DONE. PT UP IN BED TO L SIDE. WEAK COUGH - ENCOURAGED TO SPLINT CHEST. I.S. 750-1000.
--- NOTE | 2016-10-30 02:05 | NUR ---
PT REPOSITIONED UP IN BED, RT AT BS FOR IPPB. GOOD EFFORT BY PT. CM- AFIB, RATE 100S - 110S.
--- NOTE | 2016-10-30 03:03 | NUR ---
REASSESSMENT PER FLOWSHEET, NO ACUTE CHANGES. WEANING MEDINA PER ORDER. STERILE DSG CHANGE TO L DLSC, NO REDNESS OR SWELLING AT SITE.
--- NOTE | 2016-10-30 05:55 | NUR ---
AM LAB DRAWN. 0600 - RT AT FOR IPPB. IN TO SEE PT, UPDATE GIVEN AND QUESTIONS ANSWERED.
[2016-10-30 06:18] LABS: HEMATOCRIT 24.7 % (42.0-54.0); HEMOGLOBIN 8.5 g/dL (13.5-17.5); MCH 33.5 pg (26.0-34.0); MCHC 34.4 g/dL (31.0-37.0); MEAN PLATELET VOLUME 9.5 fL (7.4-10.4); RBC 2.54 10x6/uL (4.20-6.10)
[2016-10-30 06:35] LABS: MCV 97.2 fL (80.0-100.0); WBC 10.8 10x3/uL (4.8-10.8)
[2016-10-30 06:45] LABS: ALBUMIN 2.9 g/dL (3.4-5.0); ALKALINE PHOSPHATASE 21 U/L (46-116); ALT (SGPT) 24 U/L (10-68); CALC OSMOLALITY 286 mosm/kg (275-300); CALCIUM 7.5 mg/dL (8.5-10.1); CHLORIDE - SERUM 107 mmol/L (98-107); CREATININE - SERUM 0.8 mg/dL (0.6-1.3); GLUCOSE 115 mg/dL (74-106); POTASSIUM - SERUM 4.1 mmol/L (3.5-5.1); PROTEIN - SERUM 5.1 g/dL (6.4-8.2); SODIUM 140 mmol/L (136-145); UREA NITROGEN 31 mg/dL (7-18); eGFR NON AFRICAN AMERICAN > 90 mL/min (90-120)
--- NOTE | 2016-10-30 07:00 | NUR ---
REPORT RECEIVED. ASSUMED CARE OF PATIENT. ASSESSMENT COMPLETE. PT AWAKE AND CONVERSANT. ANSWERS APPROPRIATELY. ON 2L NC. MIDSTERNAL DRESSING INTACT. DATED 10/28/16, SUBSTERNAL/UPPER ABDOMENAL DRESSING INTACT. DATED 10/29/16. CT X3. RIGHT LEG DRESSINGS UPPER AND LOWER, INTACT, CLEAN. DATED 10/29/16. DESHAWN X2. TEDS AND SCDS IN USE. PULSES PALPABLE. MANCUSO CATHETER IN USE. URINE CLEAR, DARK YELLOW. TEMP 38.2. PT WEARING HIS GLASSES. TEMP PACER WIRES INTACT. SETTING OF VVI 60, O,10. LEFT SUBCLAVIAN CENTRAL LINE DRESSING INTACT AND DATED 10/30/16. MEDINA INFUSING AT 0.25 MCG/KG/MIN, BURETROL AT 5ML/HR, AND MORPHINE MINE SUPERVISOR. RIGHT JUGULAR SWAN LINE IN PLACE. DRESSING INTACT. PLASMALYTE AT 30/ML INFUSING. CVL, PA AND ART LINES ZEROED.
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
--- NOTE | 2016-10-30 07:48 | NUR ---
DR CORDOVA BY TO SEE PATIENT. PLANS TO PULL LINES. WANTS MORNING DOSE OF BETAPACE GIVEN NOW. PT STILL IN A-FIB.
--- NOTE | 2016-10-30 09:04 | NUR ---
AT BEDSIDE FOR 0900 VISITATION. PT SITTING UP IN BED EATING BREAKFAST OF SCRAMBLED EGGS AND GRITS.
--- NOTE | 2016-10-30 10:21 | NUR ---
PT REQUESTED LIGHT TO BE TURNED OFF AND SHADE DRAWN OVER HIS WINDOW SO THAT HE COULD REST.
--- NOTE | 2016-10-30 11:18 | NUR ---
SPOKE TO FINN CHENEY ABOUT GLUCOSE LEVELS AND FREQUENCY OF CHECKS. PT HAS NOT BEEN ON AN INSULIN DRIP SINCE THE O.R. PT CURRENTLY AT Q2H CHECKS. SAID COULD CHANGE TO Q4H CHECKS.
--- NOTE | 2016-10-30 12:07 | NUR ---
FAMILY AT BEDSIDE FOR VISITATION.
--- NOTE | 2016-10-30 13:56 | NUR ---
IPPB IN PROGRESS
--- NOTE | 2016-10-30 15:00 | NUR ---
SPOKE TO FINN CHENEY ABOUT PT PAIN MEDICATION SINCE4 PLAN TO PULL LINES. SAYS DR CORDOVA WANTS TO SWITCH TO P.O. NORCO 10 Q3PRN PAIN.
--- NOTE | 2016-10-30 15:45 | NUR ---
REASSESSMENT COMPLETE. FAMILY NOW AT BEDSIDE. MEDINA INFUSION WEANED OFF.
--- NOTE | 2016-10-30 17:00 | NUR ---
VERSED HAS BEEN GIVEN. A AND P CHEST TUBES REMOVED BY DR CORDOVA. LEFT PLEURAL REMAINS. NEW DRESSINGS APPLIED OVER SITES.
--- NOTE | 2016-10-30 17:00 | NUR ---
0700-RECIEVED PER FLOW SHEET-SITTING UP IN CHAIR-LATERAL CHEST TUBE-SEROUS DRAINAGE-NO AIR LEAK-TO 20CM SUCTION-NEOMYCIN GTT INFUSING-PARAMETER SYS>100 IS [id number] AT [facility] AND ENCOURAGED WITH SAME 1130-DR CORDOVA AT [facility]-ASSISTED PT TO BED-REMOVAL OF R LATERAL CHEST TUBE BY DR CORDOVA AND PROTOCOL--KBRN
--- NOTE | 2016-10-30 18:00 | NUR ---
MANCUSO CATHETER REMOVED, TIP INTACT. LEFT RADIAL ART LINE REMOVED, TIP INTACT. NO BLEEDING. RIGHT JUGULAR SWAN REMOVED, TIP INTACT. MINIMAL BLEEDING. PRESSURE APPLIED UNTIL STOPPED. GAUZE AND CLEAR DRESSING APPLIED TO SITE. DESHAWN DRAIN X2 REMOVED FROM RIGHT LEG. ALL INCISION SITES CLEANED WITH IODINE AND GAUZE AND MEPILEX DRESSINGS APPLIED. FAMILY NOW AT BEDSIDE.
--- NOTE | 2016-10-30 18:24 | NUR ---
AT BEDSIDE. PT NOW EATING DINNER. CURRENTLY ON 0.5 MCG/KG/MIN OF MEDINA. BLOOD PRESSURE REMAINS ABOVE 90.
--- NOTE | 2016-10-30 19:50 | NUR ---
AOX4, DENIES PAIN AT THIS TIME. RESPIRATIONS UNLABORED AT THIS TIME, 2L O2 VIA NC, SPO2 96. AFIB ON MONITOR, PERIPHERAL PULSES PRESENT. MEDINA GTT INFUSING TO MAINTAIN SBP ABOVE 90. BOWEL SOUNDS ACTIVE IN ALL QUADRANTS. URINAL AT BEDSIDE. COMPLETE LINEN CHANGE PROVIDED, PT REPOSITIONED IN BED FOR COMFORT. COUGH/DB WITH GOOD EFFORT. PULLING 1100 ON IS. CALL LIGHT WITHIN PT REACH. DENIES FURTHER NEEDS AT THIS TIME. CPOC.
--- NOTE | 2016-10-30 21:20 | NUR ---
FAMILY AT BEDSIDE, UPDATE GIVEN AND QUESTIONS ANSWERED. NO S/S OF DISTRESS, NO C/O PAIN AT THIS TIME. COUGH/DB WITH GOOD EFFORT. FRESH WATER TO BEDSIDE. RESTING COMFORTABLY. CALL LIGHT WITHIN PT REACH. CPOC.
--- NOTE | 2016-10-30 23:56 | NUR ---
REASSESSMENT COMPLETE, SEE FLOWSHEET FOR ALL FINDINGS. NO ACUTE CHANGES NOTED AT THIS TIME. PT REPOSITIONED FOR COMFORT. PULLING 1000 ON IS, COUGH/DB WITH GOOD EFFORT. MEDINA REMAINS INFUSING TO MAINTAIN SBP ABOVE 90. DENIES FURTHER NEEDS AT THIS TIME. CALL LIGHT WITHIN PT REACH. CPOC.
[2016-10-31] VITALS (92 sets, daily range): BP systolic 83–135; BP diastolic 49–88
--- NOTE | 2016-10-31 01:31 | NUR ---
PRN PAIN MEDICATION ADM PER PT REQUEST. PAIN 07/27, INCISIONAL. PT REPOSITIONED FOR COMFORT. COUGH/DB WITH GOOD EFFORT. PULLING 1000 ON IS. DENIES FURTHER NEEDS AT THIS TIME. CPOC.
--- NOTE | 2016-10-31 03:45 | NUR ---
REASSESSMENT COMPLETE, SEE FLOWSHEET FOR ALL FINDINGS. NO ACUTE CHANGES NOTED AT THIS TIME. NO C/O PAIN. VSS, MEDINA INFUSING TO MAINTAIN SBP ABOVE 90. PULLING 1000 ON IS, COUGH/DB WITH GOOD EFFORT. DENIES FURTHER NEEDS AT THIS TIME. CALL LIGHT WITHIN PT REACH. CPOC.
[2016-10-31 06:18] LABS: HEMATOCRIT 24.3 % (42.0-54.0); HEMOGLOBIN 8.4 g/dL (13.5-17.5); MCH 33.7 pg (26.0-34.0); MCHC 34.6 g/dL (31.0-37.0); MCV 97.6 fL (80.0-100.0); MEAN PLATELET VOLUME 9.5 fL (7.4-10.4); RBC 2.49 10x6/uL (4.20-6.10); RDW 14.2 % (11.5-14.5); WBC 10.7 10x3/uL (4.8-10.8)
--- NOTE | 2016-10-31 06:20 | NUR ---
AT BEDSIDE, UPDATE GIVEN AND QUESTIONS ANSWERED. PT POSITIONED FOR COMFORT. FRESH WATER TO BEDSIDE. NO S/S OF DISTRESS AT THIS TIME. DENIES FURTHER NEEDS. CALL LIGHT WITHIN PT REACH. CPOC.
[2016-10-31 06:45] LABS: ALBUMIN 2.7 g/dL (3.4-5.0); ALKALINE PHOSPHATASE 27 U/L (46-116); ALT (SGPT) 27 U/L (10-68); CALC OSMOLALITY 281 mosm/kg (275-300); CALCIUM 7.7 mg/dL (8.5-10.1); CARBON DIOXIDE 27.2 mmol/L (21.0-32.0); CHLORIDE - SERUM 106 mmol/L (98-107); CREATININE - SERUM 0.8 mg/dL (0.6-1.3); GLUCOSE 100 mg/dL (74-106); POTASSIUM - SERUM 4.5 mmol/L (3.5-5.1); PROTEIN - SERUM 5.3 g/dL (6.4-8.2); SODIUM 138 mmol/L (136-145); UREA NITROGEN 29 mg/dL (7-18); eGFR NON AFRICAN AMERICAN > 90 mL/min (90-120)
--- NOTE | 2016-10-31 07:00 | NUR ---
ASSESSMENT COMPLETE PER FLOW SHEET. RESTING IN BED, NO NEEDS VOICED. VITAL SIGNS STABLE.
--- NOTE | 2016-10-31 09:00 | NUR ---
AM MEDICATIONS GIVEN PER MAR WITHOUT PROBLEM. DENIES ANY NEEDS AT THIS TIME.
--- NOTE | 2016-10-31 10:15 | NUR ---
CHUCK WITH PHYSICAL THERAPY AT BEDSIDE. ASSISTED PT TO MOVE FROM BED TO CHAIR AND TAKE ABOUT 50 STEPS.
--- NOTE | 2016-10-31 10:45 | NUR ---
MIDSTERNAL DRESSING SATURATED IN SMALL AREA. NOTIFIED FINN ESCAMILLA RN. REC'D OK TO CHANGE DRESSING AND TO HOLD PRESSURE AT SITE IF STILL OOZING. DRESSING CHANGED AND PRESSURE HELD. BLEEDING STOPPED AFTER 15 MINUTES OF HOLDING PRESSURE AT SITE.
--- NOTE | 2016-10-31 12:22 | TEE ---
PATIENT:CHAVO FAN MEDICAL RECORD: [id number] LOCATION:[place] [address] AGE OF PATIENT: 66 ADMISSION DATE: 10/28/16 SEX: M REFERRING PHYSICIAN: INTERPRETING PHYSICIAN: CLAUDETTE COTTON MD TRANSESOPHAGEAL ECHOCARDIOGRAM ERI CHARGE Y INDICATIONS: CABG PREMEDICATIONS: PATIENT'S RESPONSE PROCEDURE DOPPLER MEASUREMENTS: LVIT LA PA RA LVOT RVOT Asc. Ao AV Gradient Peak AV Mean AV Area MV Gradient Peak MV Mean MV Area INTERPRETATION: LVd: 5.8 cm LVs: 5.0 cm Doppler: 2-D: COLOR FLOW DOPPLER NORMAL SALINE STUDY: MISCELLANOUS: DIAGNOSIS: PLAN: Production Support Supervisor:3 Dr. Riley Painter Apprentice: Nadia LEONARDO COMMENTS: DATE OF SERVICE: 10/28/2016 Transesophageal echo evaluation of valvular structures during bypass surgery. FINDINGS: 1. Left ventricular chamber size is within normal limits. Left ventricular systolic function is normal. Overall ejection fraction estimated at 50%. 2. Left atrium, right atrium and right ventricular chamber sizes are within normal limits. TRANSESOPHAGEAL ECHOCARDIOGRAM REPORT [id number] CHAVO FAN 3. Valvular structures have normal structure and motion. 4. Doppler interrogation reveals moderate mitral regurgitation, trace aortic insufficiency, trace tricuspid regurgitation, no other valvular insufficiency or stenosis. 5. No evidence of pericardial effusion or left ventricular thrombus. TRANSINT:[id number] Voice Confirmation ID: [id number] DOCUMENT ID: [id number] at 1222 CC: [id number] DICTATION DATE: 10/29/16 1157 TELEVISION INSTALLER: 10/30/16 0019 ADM IN [facility] [address] [place] [address]
--- NOTE | 2016-10-31 13:30 | NUR ---
CHUCK WITH PHYSICAL THERAPY AT BEDSIDE. ASSISTED PT TO AMBULATE AROUND 75FT AND THEN BACK TO CHAIR. TOLERATED WELL. VITAL SIGSN STABLE.
--- NOTE | 2016-10-31 14:00 | NUR ---
Nutrition Follow Up: Pt is POD 3 CABG. He is eating 62% meal avg on an AHA diet. Wt stable. No BM. Meds and labs reviewed. Rec continue current diet. RD following.
--- NOTE | 2016-10-31 15:32 | NUR ---
ABDOMINAL AND RIGHT LEG DRESSINGS CHANGED PER PROTOCOL. SITTING UP IN CHAIR. DENIES ANY NEEDS AT THIS TIME. WILL CONTINUE TO MONITOR.
--- NOTE | 2016-10-31 17:30 | NUR ---
BACK TO BED WITH LITTLE ASSISTANCE. GOWN SATURATED WITH FLUID FROM LEG DRESSINGS, GOWN CHANGED. RIGHT LEG DRESSINGS CHANGED PER PROTOCOL. C/O PAIN AT INCISION SITE THAT IS 6/10. NORCO GIVEN PER MAR AND PT REQUEST. NO OTHER NEEDS VOICED. WILL CONTINUE TO MONITOR.
--- NOTE | 2016-10-31 19:00 | NUR ---
1900: Pt rec'd resting HOB 30 degrees with eyes open. Pt pupils MURPHY+ bilat. SMCx4=bilat textiles and clothing teacher with commands. Pt states his pain is "ok" right now, but has had incisional pain increased with coughing. Pt denies nausea, tingling, numbness, or vomitting. Pt breathing 022LNC with RR20x with SPO2 94%. Encouraged DBC and IS. IS done with max [id number] achieved. Pt lungs clear bilat with decreased bases with auscultation. MMP and no cyanosis noted. Irregular, rapid HR palpable at left radial artery. Pt UAFIB 110-120bpm on CM with SBP 90-100mmHG. Left DLSC CDI with Neosynephrine gtt titrating to keep SBP >90. TEDs and SCDs on at this time. Midline sternal incision CDI with no s/s of bleeding noted. Distal portion of dressing (epigastric area) with TPM wires taped intact with TPM VVI 60/0/10 V-Sensing. Pericardial drain also extends from dressing. No leaks detected. Tube to atrium collection system with 20cm suction draining small amount of clear, pink, liquid drainage. Right leg with multiple incision sites extending from groin to calf with dressings intact. Proximal dressing with some oozing noted. Groin is tight to touch and purple bruising is seen in area. ABD soft NT BS x4 active. Pt denies difficulty with elimination. SR upx2, call light in reach, provided water etc.. as per request, all alarms on and audible.
--- NOTE | 2016-10-31 19:00 | NUR ---
1900: Pt rec'd resting up in chair with eyes open. Pupils MURPHY+ bilat. SMCx4=bilat head of cytogenetics. Pt denies pain at this time. Pt denies nausea, tingling, or numbness. Pt follows all commands and moves x4 extrem vs gravity without difficulty. Pt breathing RA RR 16x with SPO2 94%. Lungs clear bilat with decreased bases with auscultation. MMP and no cyanosis noted. Encouraged DBC. IS done with max TV 1000cc achieved. S1S2 regular SR 90's on CM with SBP 120-130. Midline sternal incision CDI with no bleeding, oozing, swellling noted. Distal portion of dressing (epigastric) with TPM wires taped intact. TPM VVI 60/0/10 V-Sensing. Right lower extrem with multiple dressings to incision sites extending from groin to calf. TEDs and SCDs intact. Pt has a generalized edema and tightness felt with palpation of extrem x4. LDLSC SL'D at this time. ABD soft NT BS active x4. Pt denies difficulty with elimination. call light in reach and all monitors and alarms intact. Discussed with patient fall risk and pt verbalized understanding. RN remains outside of room at "window seat"
--- NOTE | 2016-10-31 20:35 | NUR ---
2034: Pt urinated in urinal. Pt "spilled some." Linen changed at this time. Pt request to remain in chair and is expecting family for visitation.
--- NOTE | 2016-10-31 21:00 | NUR ---
2100: Pt family here. Update provided and verbalized understanding. Pt without c/o at this time. Pt laughing with family. Pt remains SR 90's on CM with SBP 120-130. No change in IVF/UOP. No change in TPM settings. Remains V-Sense.
--- NOTE | 2016-10-31 21:00 | NUR ---
2100: Pt family here at bedside. Pt and family education done at this time. Verbalized understanding. Pt remains Afib 110's with SBP 100's. Pt remains on Neosynephrine gtt at this time. Order reviewed for Beta-pace and admin PO as per EMAR. Pt denies difficulty with elimination.
--- NOTE | 2016-10-31 22:00 | NUR ---
2200: Assisted patient to bathroom. Pt had difficulty rising, but was stable and required minimal assistance with balance. Pt urinated in commode and was returned to bed at this time. Pt placed HOB 30 degrees. All monitors and alarms reeestablished.
--- NOTE | 2016-10-31 23:00 | NUR ---
2300: Pt resting in bed with eyes closed at this time. Pt remains SR 89 with SBP 120-130. Pt remains RA AY25-20p with SPO2 94%. TPM setting intact showing V-Sense.
--- NOTE | 2016-10-31 23:00 | NUR ---
2300: Pt resting with eyes closed at this time. Pt remains Afib 112 with SBP 90's. No change in Neosynephrine gtt. Pt remains 022LNC with RR14x with SPO2 99%. No change in TPM settings, remains VVI 60/0/10 V-Sensing.
[2016-11-01] VITALS (81 sets, daily range): BP systolic 82–135; BP diastolic 40–87
--- NOTE | 2016-11-01 01:30 | NUR ---
0130: Pt resting with eyes closed. Open to verbal. No c/o at this time. Pt remains UAFIB 112-122bpm with SBP 100's. Nipride as per flow sheet. No change in pt TPM settings. Remains V-Sensed.
--- NOTE | 2016-11-01 02:30 | NUR ---
0230: Pt assisted up OOB and walked approx 60ft with minimal assistance. Pt balance steady. Pt returned to bed and all monitors and alarms reestablished. Pt remains SR 70's with SBP 110-120. Pt remains RA [id number] with SPo2 94%
--- NOTE | 2016-11-01 03:00 | NUR ---
0300: Pt resting in bed with eyes open. Pt uses urinal without assistance. Urinated 225cc of dark yellow UOP. Pt remains Afib 116 with SBP 100-120. Continue to titrate Arian gtt to keep SBP >90.
--- NOTE | 2016-11-01 04:00 | NUR ---
0400: Pt assisted up OOB at this time. Pt weighed using standing scale with TPM held by RN. Pt assisted to WC and to radiology for PA/LAT. Pt gait steady with minimal assistance.
--- NOTE | 2016-11-01 04:15 | NUR ---
0415: Pt returned to room and all monitors and alarms reestablished. Pt without c/o at this time. Pt remains UAFIB 110-120 with SBP 90-100.
--- NOTE | 2016-11-01 06:00 | NUR ---
0600: Pt here. Update provided and verbalized understanding. Pt without c/o at this time. Pt remains on Arian gtt with SBP 90-100. Pt remains UAFIB 110-120 bpm. Left medistinal tube remains to suction with approx 10-15cc/hr clear/red/pink liquid drainage.
[2016-11-01 06:35] LABS: HEMATOCRIT 23.8 % (42.0-54.0); HEMOGLOBIN 8.2 g/dL (13.5-17.5); MCH 33.7 pg (26.0-34.0); MCHC 34.5 g/dL (31.0-37.0); MCV 97.9 fL (80.0-100.0); MEAN PLATELET VOLUME 9.1 fL (7.4-10.4); RBC 2.43 10x6/uL (4.20-6.10)
[2016-11-01 07:37] LABS: ALBUMIN 2.5 g/dL (3.4-5.0); ALKALINE PHOSPHATASE 36 U/L (46-116); BILIRUBIN - TOTAL 0.55 mg/dL (0.2-1.3); CALC OSMOLALITY 277 mosm/kg (275-300); CALCIUM 7.5 mg/dL (8.5-10.1); CARBON DIOXIDE 26.5 mmol/L (21.0-32.0); CHLORIDE - SERUM 103 mmol/L (98-107); CREATININE - SERUM 0.8 mg/dL (0.6-1.3); GLUCOSE 97 mg/dL (74-106); POTASSIUM - SERUM 4.2 mmol/L (3.5-5.1); PROTEIN - SERUM 5.5 g/dL (6.4-8.2); SODIUM 136 mmol/L (136-145); UREA NITROGEN 29 mg/dL (7-18); eGFR NON AFRICAN AMERICAN > 90 mL/min (90-120)
[2016-11-01 07:38] LABS: ALT (SGPT) 39 U/L (10-68)
--- NOTE | 2016-11-01 18:00 | NUR ---
0700-RECIEVED PER FLOW SHEET-ASSISTED TO BEDSIDE CHAIR-REQUIRED >50%ASSIST FROM STAFF-CHEST TUBE IN PLACE NOTED SEROUS NO AIR LEAK NOTED--AFIB ON MONITOR RATE [id number] APPROPRIATE 0830-BREAKFE TRAY- AT BEDSIDE- 1430-DR CORDOVA AT [facility]-STATUS REPORT GIVEN-
--- NOTE | 2016-11-01 19:30 | NUR ---
SHIFT ASSESSMENT COMPLETE, SEE FLOWSHEET FOR FULL DETAILS. PATIENT A&O X4, CARRIES CONVERSATION. UNCONTROLLED A-FIB ON MONITOR. ON MEDINA GTT WITH SBP 90-110. SEE IV DRIPS. TPM SECURED TO CHEST, VVI @ 60, SENSING. AT BEDSIDE, WILL MONITOR.
--- NOTE | 2016-11-01 21:00 | NUR ---
NIGHT MEDS GIVEN WITHOUT DIFFICULTY, AT BEDSIDE.
--- NOTE | 2016-11-01 23:10 | NUR ---
REASSESSMENT COMPLETE, SEE FOR DETIALS. NO ACUTE CHANGES. REMAINS IN UNCONTROLLED AFIB WITH SBP 90-110. WILL MONITOR.
[2016-11-02] VITALS (73 sets, daily range): BP systolic 86–134; BP diastolic 53–85
--- NOTE | 2016-11-02 01:10 | NUR ---
RESITNG WITH EYES CLOSED, REMAINS IN UA-FIB. BP STABLE. WILL MONITOR.
--- NOTE | 2016-11-02 03:45 | NUR ---
TPM DRESSING CHANGED. CLEANED WITH IODINE, BIOPATCH X2, COVERED WITH 4X4'S AND LARGE TEGADERM PLACED X2. RIGHT LEG HARVEST INCISIONS CHANGED. IODINE OINTMENT PLACED ON INCISIONS, COVERED BY 4X4's, AND TAPED. TO RADIOLOGY FOR X-RAY. TOLERATED WELL. STEADY GATE. UP TO CHAIR WHEN BACK, PLACED ON MONITOR. STILL IN UA-FIB, SBP BETWEEN 90-100. WILL MONITOR.
--- NOTE | 2016-11-02 05:15 | NUR ---
RESTING WITH EYES CLOSED IN CHAIR, VSS.
[2016-11-02 06:27] LABS: MCH 32.6 pg (26.0-34.0); MCHC 34.1 g/dL (31.0-37.0); MEAN PLATELET VOLUME 9.4 fL (7.4-10.4); RDW 15.3 % (11.5-14.5)
[2016-11-02 06:30] LABS: HEMOGLOBIN 9.9 g/dL (13.5-17.5); MCV 95.4 fL (80.0-100.0); RBC 3.04 10x6/uL (4.20-6.10); WBC 11.5 10x3/uL (4.8-10.8)
[2016-11-02 06:53] LABS: ALBUMIN 2.6 g/dL (3.4-5.0); ALKALINE PHOSPHATASE 54 U/L (46-116); CALC OSMOLALITY 276 mosm/kg (275-300); CALCIUM 7.9 mg/dL (8.5-10.1); CARBON DIOXIDE 28.3 mmol/L (21.0-32.0); CHLORIDE - SERUM 101 mmol/L (98-107); CREATININE - SERUM 0.8 mg/dL (0.6-1.3); GLUCOSE 98 mg/dL (74-106); PROTEIN - SERUM 5.8 g/dL (6.4-8.2); SODIUM 136 mmol/L (136-145); UREA NITROGEN 27 mg/dL (7-18); eGFR NON AFRICAN AMERICAN > 90 mL/min (90-120)
[2016-11-02 06:56] LABS: ALT (SGPT) 53 U/L (10-68)
--- NOTE | 2016-11-02 19:15 | NUR ---
SHIFT ASSESSMENT COMPLETE, PATIENT A&O X4, UAFIB ON MONITOR, BP STABLE. MEDINA TURNED OFF AT THIS TIME AND SALINE LOCKED. WILL MONITOR. TPM VVI @ 60, SENSING. CL IN REACH.
--- NOTE | 2016-11-02 20:40 | NUR ---
NIGHT MEDS GIVEN, FRESH ICE WATER PROVIDED. VSS.
--- NOTE | 2016-11-02 23:10 | NUR ---
REASSESSMENT COMPLETE, SEE FLOWSHEET. PATIENT REMAINS IN UA-FIB, BP REMAINS STABLE WITHOUT MEDINA GTT, WILL MONITOR.
[2016-11-03] VITALS (24 sets, daily range): BP systolic 96–144; BP diastolic 48–88
--- NOTE | 2016-11-03 01:10 | NUR ---
RESTING WITH EYES CLOSED, FIB ON MONITOR, CL IN REACH, WILL MONITOR.
--- NOTE | 2016-11-03 03:05 | NUR ---
REASSESSMENT COMPLETE, SEE FLOWSHEET. A-FIB ON MONITOR, TPM SENSING. BP STABLE. WILL MONITOR.
--- NOTE | 2016-11-03 05:00 | NUR ---
TO XRAY VIA WHEELCHAIR. RETURNED AND PLACED ON MONITOR. A-FIB SHOWN, BP STABLE. R LEG DRESSINGS CHANGED.
--- NOTE | 2016-11-03 05:15 | NUR ---
UP TO BATHROOM, HAD LARGE FORMED BM. RETURNED TO CHAIR.
[2016-11-03 06:20] LABS: HEMATOCRIT 26.8 % (42.0-54.0); HEMOGLOBIN 9.1 g/dL (13.5-17.5); MCH 32.6 pg (26.0-34.0); MCV 96.1 fL (80.0-100.0); MEAN PLATELET VOLUME 9.3 fL (7.4-10.4); RBC 2.79 10x6/uL (4.20-6.10); RDW 14.9 % (11.5-14.5)
[2016-11-03 06:35] LABS: ALBUMIN 2.3 g/dL (3.4-5.0); ALKALINE PHOSPHATASE 57 U/L (46-116); ALT (SGPT) 60 U/L (10-68); BILIRUBIN - TOTAL 0.74 mg/dL (0.2-1.3); CALC OSMOLALITY 277 mosm/kg (275-300); CALCIUM 7.6 mg/dL (8.5-10.1); CARBON DIOXIDE 30.3 mmol/L (21.0-32.0); CHLORIDE - SERUM 102 mmol/L (98-107); CREATININE - SERUM 0.8 mg/dL (0.6-1.3); GLUCOSE 99 mg/dL (74-106); POTASSIUM - SERUM 4.1 mmol/L (3.5-5.1); PROTEIN - SERUM 5.5 g/dL (6.4-8.2); SODIUM 137 mmol/L (136-145); UREA NITROGEN 24 mg/dL (7-18); eGFR NON AFRICAN AMERICAN > 90 mL/min (90-120)
--- NOTE | 2016-11-03 08:26 | NUR ---
RECIEVED AWAKE SITTING UP IN CHAIR-RESP RX IN PROGRESS-NOTED NIBP ON L CALF-PT STATED AMBULATED EASILY IN RM AND TRAVELED TO XRAY WITH LESS DIFFICULTY
--- NOTE | 2016-11-03 11:04 | NUR ---
DRG CHANGE TO LR L X4 -SEROUS DRAINAGE LARGE AMOUNT-TOLERATED WELL AND UP IN CHAIR-
--- NOTE | 2016-11-03 14:05 | OP ---
PATIENT NAME: CHAVO FAN MEDICAL RECORD: [id number] :52 LOCATION:[place] [facility] ADMISSION DATE:10/28/16 SURGEON: BRIAN GAYLE MD DATE OF OPERATION: 10/28/2016 SURGEON: Brian Gayle MD ANESTHESIA: General endotracheal, Dr. Franco. OPERATIONS PERFORMED: Aortocoronary artery bypass utilizing left internal thoracic, left anterior descending, reverse saphenous vein segment to the first diagonal and reverse saphenous vein segment to the obtuse marginal coronary artery. PREOPERATIVE DIAGNOSES: Angina pectoris, severe occlusive coronary artery disease and left main coronary artery lesion. POSTOPERATIVE DIAGNOSES: Angina pectoris, severe occlusive coronary artery disease and left main coronary artery lesion. INDICATION FOR OPERATION: Angina pectoris compelling anatomy. FINDINGS OF THE OPERATION: The left internal thoracic and reverse saphenous vein grafts were good conduits for grafting. The target vessels were delicate and diffusely diseased and difficult to identify; however, the left anterior descending was a 2 mm vessel, diffusely diseased posteriorly. The first diagonal was a 1.5 mm vessel. The obtuse marginal was a 2.5 mm vessel and diffusely diseased as well. ESTIMATED BLOOD LOSS: Cell Saver was used. DESCRIPTION OF PROCEDURE: After informed consent and adequate preoperative medication evaluation, the patient was brought to the operating room, placed on the table in the supine position. After induction of general endotracheal anesthesia and application of appropriate monitoring devices, the chest, neck, abdomen, and both legs were prepped and draped in a sterile field, utilizing Betadine scrub, alcohol, and Betadine solution. A Betadine-impregnated drape was also used. Saphenous vein was harvested from right thigh and prepared for reverse saphenous vein grafting. The leg was closed over drains utilizing 3-0 Vicryl and skin joselin. A median sternotomy incision was used and dissection carried down to the fascia. Hemostasis maintained with electrocautery. The sternum was divided. Innominate vein was identified and protected. Left internal thoracic was taken down and prepared for grafting. The patient was given a calculated dose of heparin, cannulated in a standard fashion utilizing 1 aortic, one two-stage cannula in the atrium and inferior vena cava. The patient was placed on cardiopulmonary bypass, cooled to 32 degrees centigrade. A cross clamp was placed just proximal to the aortic cannula. The patient was given cardioplegic solution through the aortic root. The patient was given a cold induction and cold maintenance, given throughout the procedure, either through the grafts, the aortic root or a combination of both. The first vessel to be grafted was the obtuse marginal. It was grafted end-to-side utilizing a running 7-0 Prolene suture. The grafts were measured back to the aorta and a proximal anastomosis fashioned utilizing running 6-0 Prolene suture. Next, the first diagonal was grafted end-to-side utilizing a running 7-0 Prolene suture. Grafts were measured back to the aorta and a proximal anastomosis fashioned utilizing OPERATIVE REPORT [id number] CHAVO FAN running 6-0 Prolene suture. Next, the first diagonal was grafted end-to-side utilizing a running 7-0 Prolene suture. Grafts were measured back to the aorta and a proximal anastomosis fashioned utilizing running 6-0 Prolene suture. Next, left internal thoracic was brought through the hole in pericardium, sutured left anterior descending end-to-side utilizing a running 8-0 Prolene suture. Pedicle was attached to epicardium with 6-0 Prolene suture. All maneuvers to remove trapped air were performed. The patient was given warm cardioplegic reperfusion and controlled reperfusion. The patient was rewarmed to 37 degrees centigrade. Two atrial and two ventricular pacing wires were placed on the heart and brought out through the epigastric area. The patient was weaned cardiopulmonary bypass. After being stable off bypass, he was given calculated dose of protamine to reverse the heparin. Hemostasis was achieved. A #40 right angle and #36 chest tubes were brought in through the epigastric area and placed in the mediastinum. The chest was again irrigated. Instrument count and sponge count were correct times 2. Chest was closed in layers utilizing #7 wire on the sternum, #2 Vicryl on linea alba and pectoralis fascia. Subcutaneous tissue approximated with 3-0 Vicryl and skin approximated with 3-0 subcuticular Vicryl. Sterile dressings were applied. The patient tolerated the procedure well and transferred to cardiovascular recovery in satisfactory condition. TRANSINT:[id number] Voice Confirmation ID: [id number] DOCUMENT ID: [id number] BRIAN GAYLE MD at 1405 CC: [id number] DICTATION DATE: 10/28/16 1618 RECORDS MANAGER: 10/28/16 2351 ADM IN [facility] [address] [place] [id number]
--- NOTE | 2016-11-03 18:36 | NUR ---
UPPER ABD DRG CHANGED TO PACER SITES AND CHEST TUBE SITES-CLEAN AND INTACT PER PROTOCOL
--- NOTE | 2016-11-03 19:24 | NUR ---
REPORT RECIEVED. ASSESSMENT COMPLETED. SEE FLOW SHEET FOR FURTHER DETAILS. IS AT BED SIDE STATES SHE'S GOING HOME FOR THE NIGHT. WILL CONTINUE TO MONITOR PT.
--- NOTE | 2016-11-03 19:25 | NUR ---
PT TPM IS SENSING AT A RATE OF 60 AND VMA OF 10 AND SENSITIVTY OF 2.00. SECURED TO CHEST.
--- NOTE | 2016-11-03 21:00 | NUR ---
PT IS RESTING IN BED WITH NO APPEARENT DISTRESS. WILL CONTINUE TO MONITOR.
--- NOTE | 2016-11-03 23:00 | NUR ---
REASSESSMENT COMPLETED. NO ACUTE CHANGES AT THIS TIME. WILL CONTINUE TO MONITOR.
[2016-11-04] VITALS (26 sets, daily range): BP systolic 90–139; BP diastolic 20–83
--- NOTE | 2016-11-04 01:00 | NUR ---
PT ASLEEP IN BED WITH TV OFF DENIES ANY NEEDS. WILL CONTINUE TO MONITOR.
--- NOTE | 2016-11-04 03:00 | NUR ---
REASSESSMENT COMPLETED. NO CHANGES AT THIS TIME. WILL CONTINUE TO MONITOR PT.
--- NOTE | 2016-11-04 05:00 | NUR ---
RT LEG DRESSING CHANGED PER ORDER. RIKKI AND SCD'S APPLIED. PT RETURNED FROM XRAY AND PALCED IN CHAIR. WILL CONTINUE TO MONITOR.
[2016-11-04 06:54] LABS: HEMATOCRIT 28.5 % (42.0-54.0); HEMOGLOBIN 9.5 g/dL (13.5-17.5); MCH 32.1 pg (26.0-34.0); MCHC 33.3 g/dL (31.0-37.0); MCV 96.3 fL (80.0-100.0); MEAN PLATELET VOLUME 9.2 fL (7.4-10.4); RBC 2.96 10x6/uL (4.20-6.10); RDW 15.1 % (11.5-14.5)
[2016-11-04 07:17] LABS: ALBUMIN 2.4 g/dL (3.4-5.0); ALKALINE PHOSPHATASE 67 U/L (46-116); ALT (SGPT) 74 U/L (10-68); BILIRUBIN - TOTAL 0.69 mg/dL (0.2-1.3); CALC OSMOLALITY 277 mosm/kg (275-300); CALCIUM 7.7 mg/dL (8.5-10.1); CHLORIDE - SERUM 102 mmol/L (98-107); CREATININE - SERUM 0.8 mg/dL (0.6-1.3); GLUCOSE 91 mg/dL (74-106); POTASSIUM - SERUM 4.2 mmol/L (3.5-5.1); PROTEIN - SERUM 5.8 g/dL (6.4-8.2); SODIUM 137 mmol/L (136-145); UREA NITROGEN 23 mg/dL (7-18); eGFR NON AFRICAN AMERICAN > 90 mL/min (90-120)
--- NOTE | 2016-11-04 08:00 | NUR ---
PT UP IN CHAIR AT BEDSIDE. HAS SPILLED URINE ON SELF. WANTS CLEANED UP. PROVIDED WITH BASIN OF WATER AND HIBICLEANS SOAP. FRESH CLOTHS, TOWELS, GOWN AND BLANKET.
--- NOTE | 2016-11-04 10:10 | NUR ---
PT UP IN CHAIR AT BEDSIDE. HAS BEEN IN FOR VISITATION. CONCERNED OF SWELLING IN TESTICLES. PT AND INSTRUCTED TO ELEVATE THEM. WILL MONITOR.
--- NOTE | 2016-11-04 10:20 | NUR ---
PT HAS INTERVENTION OF CHANGE PACER BATTERY OVER-DUE BY 2 DAYS. CANNOT FIND DOCUMENTATION THAT BATTERY WAS CHANGED, HOWEVER, THE BATTERY AND PACER CASE BOTH ARE DATED CHANGED ON 11/02/16.
--- NOTE | 2016-11-04 10:41 | NUR ---
Nutrition Follow Up: Pt is eating 62% meal avg on an AHA diet. Wt stable. +BM 11/03/16. Labs and meds reviewed. Rec continue current diet. Will continue to provide selective menus and honor food preferences within diet. RD following.
--- NOTE | 2016-11-04 12:50 | NUR ---
HAS BEEN IN FOR VISITATION. UPDATE PROVIDED. SHE ASKED ABOUT PT WEIGHT FROM THIS MORNING. LOOKED UP AND PROVIDED TO HER. CONCERNED ABOUT PT WOUNDS FROM TAPE AT INCISION SITES. ASKED IF WE COULD WRAP IN GAUZE INSTEAD OF TAPING.
--- NOTE | 2016-11-04 15:21 | NUR ---
FAMILY AT BEDSIDE. UPDATE PROVIDED. QUESTIONS ANSWERED.
--- NOTE | 2016-11-04 17:45 | NUR ---
DR CORDOVA AT BEDSIDE FOR CARDIOVERSION. ATTEMPT X2. PT STILL IN A-FIB. SUBSTERNAL DRESSINGS CHANGED. RIGHT LEG DRESSINGS REMOVED. DUE TO TAPE SENSITIVITY SPANDAGE USED TO SECURE GAUZE 4X4.
--- NOTE | 2016-11-04 18:30 | NUR ---
AT BEDSIDE. ASSISTING PT TO SHAVE FACIAL HAIR. UPDATED ON PT STATUS.
--- NOTE | 2016-11-04 19:00 | NUR ---
REPORT RECEIVED AND ASSESSMENT COMPLETED. SEE FLOWSHEET FOR FULL DETAILS. PT IS POST OP CABG BY DR CORDOVA. CURRENTLY IN FIB. AWARE. ATTEMPT TO CARDIOVERT DURING DAY SHIFT WERE UNSUCCESSFUL. PT ON 120MG SOTALOL Q8H. WILL MONITOR THROUGHOUT SHIFT FOR COMPLICATIONS
--- NOTE | 2016-11-04 21:00 | NUR ---
PRN PAIN MEDICATION AND SCHEDULED MEDS ADMINISTERS AT THIS TIME. NO OTHER CHANGES IN STATUS. WILL CONTINUE TO MONITOR.
--- NOTE | 2016-11-04 23:00 | NUR ---
REASSESSMENT COMPLETED AT THIS TIME. SOTALOL GIVEN SCHEDULED WITH NO EFFECT ON PT HR OR RHYTHM. WILL CONTINUE TO MONITOR.
[2016-11-05] VITALS (40 sets, daily range): BP systolic 90–113; BP diastolic 32–75
--- NOTE | 2016-11-05 01:00 | NUR ---
NO CHANGE IN PATIENT STATUS AT THIS TIME. VSS. WILL MONITOR
--- NOTE | 2016-11-05 03:00 | NUR ---
REASSESSMENT COMPLETED. SEE FLOWSHEET FOR FULL DETAILS. WILL CONTINUE TO MONITOR.
--- NOTE | 2016-11-05 05:00 | NUR ---
PT TAKEN TO PA AND LAT BY RADIOLOGY. LINEN CHANGE PERFORMED. PT ASSISTED TO THE BATHROOM AT THIS TIME. NO BM TO REPORT. WILL CONTINUE TO MONITOR
[2016-11-05 06:24] LABS: HEMATOCRIT 28.7 % (42.0-54.0); HEMOGLOBIN 9.6 g/dL (13.5-17.5); MCH 32.8 pg (26.0-34.0); MCHC 33.4 g/dL (31.0-37.0); MEAN PLATELET VOLUME 9.4 fL (7.4-10.4); RBC 2.93 10x6/uL (4.20-6.10)
[2016-11-05 06:45] LABS: ALBUMIN 2.6 g/dL (3.4-5.0); ALKALINE PHOSPHATASE 75 U/L (46-116); ALT (SGPT) 86 U/L (10-68); CALC OSMOLALITY 274 mosm/kg (275-300); CALCIUM 8.5 mg/dL (8.5-10.1); CARBON DIOXIDE 29.1 mmol/L (21.0-32.0); CHLORIDE - SERUM 103 mmol/L (98-107); CREATININE - SERUM 0.9 mg/dL (0.6-1.3); GLUCOSE 101 mg/dL (74-106); POTASSIUM - SERUM 4.2 mmol/L (3.5-5.1); PROTEIN - SERUM 5.9 g/dL (6.4-8.2); SODIUM 136 mmol/L (136-145); UREA NITROGEN 22 mg/dL (7-18); eGFR NON AFRICAN AMERICAN 90 mL/min (90-120)
--- NOTE | 2016-11-05 07:29 | NUR ---
PT SITTING UP IN CHAIR. DR YOST IN ROOM
[2016-11-05 08:54] LABS: MAGNESIUM - SERUM 2.2 mg/dL (1.8-2.4); T4 THYROXINE 5.5 ug/dL (4.7-13.3); THYROID STIMULATING HORMONE 4.56 uIU/mL (0.36-3.74)
--- NOTE | 2016-11-05 09:05 | NUR ---
PT HAS BEEN UP TO WALK WITH PHYSICAL THERAPY. NO DISTRESS. NOW IN CHAIR AT BEDSIDE. HERE FOR 0900 VISITATION.
--- NOTE | 2016-11-05 10:14 | NUR ---
DRESSING TO CHEST/UPPER ABDOMEN CHANGED. RIGHT LEG DRESSING CHANGED. USED SPANDAGE TO REDUCE USE OF TAPE.
--- NOTE | 2016-11-05 15:24 | NUR ---
HOME MEDICATION MOVANTIK BROUGHT IN BY . 66 COUNT. SENT TO PHARMACY FOR VERIFICATION AND BARCODE.
--- NOTE | 2016-11-05 17:13 | NUR ---
DINNER TRAY PROVIDED. DENIES ANY OTHER NEEDS. CALL LIGHT IN REACH. UP IN CHAIR.
--- NOTE | 2016-11-05 19:15 | NUR ---
SHIFT ASSESSMENT COMPLETED SEE FLOWSHEET. PT AAOX4 C/O ITCHING ON BACK FROM WHERE COMBO PADS WERE PLACED DURING CARDIOVERSION. MEDS GIVEN DOCUMENTED ON APR. PT WITH TPM BATTERY CURRENT. CURRENTLY SENSING. ALL ALARMS SET AND VERIFIED. PT CONTINUES IN AFIB. THIS IS NOT A NEW FINDING.
--- NOTE | 2016-11-05 21:11 | NUR ---
MEDS GIVEN DOCUMENTED ON APR WITH PT TEACHING DONE. PT AND BOTH VERBALIZED COMPREHENSION. NO DIFFICULTY ADMINISTERING MEDICATIONS
--- NOTE | 2016-11-05 23:00 | NUR ---
SHIFT REASSESSMENT COMPLETED SEE FLOWSHEET. NO SIGNIFICANT CHANGES
[2016-11-06] VITALS (24 sets, daily range): BP systolic 93–123; BP diastolic 53–81
--- NOTE | 2016-11-06 01:00 | NUR ---
PT SLEEPING WELL. DID APPLY O2 AT 2L PER ORDER DUE TO O2 SAT'S FALLING IN UPPER 80'S WHILE SLEEPING.
--- NOTE | 2016-11-06 03:00 | NUR ---
SHIFT REASSESSMENT COMPLETED SEE FLOWSHEET. NO SIGNIFICANT CHANGES.
--- NOTE | 2016-11-06 04:00 | NUR ---
PT IS BACK FROM CXR AND ASSISTED TO RECLINER. RECONNECTED TO STANDARD MONITORING
--- NOTE | 2016-11-06 06:00 | NUR ---
CVL DRESSING CHANGED PER PROTOCOL. PT UP IN CHAIR RESTING. WAS HERE TO VISIT BRIEFLY
--- NOTE | 2016-11-06 07:00 | NUR ---
Received report and assumed care of patient. Patient is currently sitting up in the chair, awake, alert and oriented. NC 2 L. Left subclavian S/L. Midsternal dressing CDI. Right leg harvest sites with stockingnett in place. Patient is atrial fib on CM rate 120. See shift assessment for all findings.
--- NOTE | 2016-11-06 08:00 | NUR ---
in room to see patient. TPM changed from DDD to VVI rate of 60.
--- NOTE | 2016-11-06 08:30 | NUR ---
Amiodarone bolus initiated.
--- NOTE | 2016-11-06 08:50 | NUR ---
Pharmacy called for Amiodarone gtt, 's concentration, will send via tube station.
--- NOTE | 2016-11-06 09:15 | NUR ---
Amiodarone gtt started.
--- NOTE | 2016-11-06 09:36 | NUR ---
Nutrition Follow Up: Pt is eating 88% meal avg on an AHA diet. +BM 11/06/16. Wt stable. Meds and labs reviewed. Noted pt is POD 3 CABG. Rec continue current diet. RD following.
--- NOTE | 2016-11-06 11:21 | NUR ---
Patient remains up in chair, denies needs.
--- NOTE | 2016-11-06 12:00 | NUR ---
here to 1200 visitation. New TEDS applied. Patient set up with lunch tray and feeding self. VSS. AFIB rate 117 on CM, Amiodarone gtt infusing.
--- NOTE | 2016-11-06 14:19 | NUR ---
Patient ambulated with Rodrigue with PT, did well. Back in chair, HR AFIB 107 on CM.
--- NOTE | 2016-11-06 15:03 | NUR ---
Patients here to see him, assisting patient with urinal. Patient denies needs.
--- NOTE | 2016-11-06 15:47 | NUR ---
bathed and changed patients gown, assited with lines. Patient requested to go back to bed, I told him he could after dinner. He verbalizes understanding.
--- NOTE | 2016-11-06 18:02 | NUR ---
Patient ate 100% dinner, at bedside. Patient ready to get back to bed.
--- NOTE | 2016-11-06 19:15 | NUR ---
INITIAL SHIFT ASSESSMENT COMPLETED SEE FLOWSHEET. NOTE TPM ON VVI 50-10. WAS REPORTED TO BE AT 60-10. DR. CORDOVA CALLED TO VERIFY SETTINGS BY SHONDA MARLOW RN. NO CHANGES MADE. PT AAOX4. DENIES PAIN. INDPENDENT WITH ADLS REQUIRING ONLY SET UP HELP. AMBULATES DURING THE DAY WITH PHYSICAL THERAPY. DRESSING TO MIDSTERNAL CDI SUBSTERNAL DRESSING CDI SECURING TPM WIRES AND COVERING OLD CT SITES. THIS WAS CHANGES TODAY. RIGHT LEG WITH DRESSINGS TO HARVEST SITES CDI AND SECUREDE WITH STOCKINETTE TO AVOID ADHESIVES DUE TO PT'S SENSITIVITY TO SUCH. PT CONTINUES TO MONITORED PER STANDARD ICU PROTOCOL WITH ALL ALARMS SET AND VERIFIED.
--- NOTE | 2016-11-06 19:15 | NUR ---
CORDORONE IV FINISHED AND D/C'D IT WAS A ONE TIME ORDER
--- NOTE | 2016-11-06 21:00 | NUR ---
HERE TO VISIT. PT UPDATED HER ON HIS STATUS. PT OFFERED ACCEPTED AND ATE 100% HS SNACK. MEDS GIVEN DOCUMENTED ON APR.
--- NOTE | 2016-11-06 23:00 | NUR ---
SHIFT REASSESSMENT COMPLETED NO SIGNIFICANT CHANGES. PT RESTING WITH CALL LIGHT IN REACH.
[2016-11-07] VITALS (23 sets, daily range): BP systolic 87–132; BP diastolic 57–79
--- NOTE | 2016-11-07 00:30 | NUR ---
PT PLACED ON O2 AT 2L TO WEAR WHILE SLEEPING
--- NOTE | 2016-11-07 00:32 | NUR ---
PT C/O HEADACHE STATING IT WASNT REALLY BAD BUT JUST ENOUGH TO KEEP HIM FROM SLEEPING. MEDS GIVEN DOCUMENTED ON APR NO DIFFICULTY NOTED
--- NOTE | 2016-11-07 01:00 | NUR ---
PT SLEEPING NO FURTHER C/O HEADACHE
--- NOTE | 2016-11-07 03:00 | NUR ---
SHIFT REASSESSMENT COMPLETED SEE FLOWSHEET. NO SIGNIFICANT CHANGES. PT HAS SLEPT WELL SINCE HEADACHE RESOLVED
--- NOTE | 2016-11-07 04:05 | NUR ---
PT LEFT UNIT VIA W/C FOR PA/LAT CXR.
--- NOTE | 2016-11-07 04:15 | NUR ---
PT RETURNED FROM XRAY. TOLERATED WELL
--- NOTE | 2016-11-07 04:30 | NUR ---
PT ASSISTED IN CHAIR. LEGS ELEVATED. CALL LIGHT LEFT IN LAP. RECONNECTED TO ICU MONITORS. ALL ALARMS SET
--- NOTE | 2016-11-07 06:17 | NUR ---
AM LAB DRAWN FROM CVL AND SENT TO LAB FOR ANALYSIS NEW PRN ADAPTERS PLACED ON LINES. AT BEDSIDE TO VISIT. PT REMAINS UP IN CHAIR
[2016-11-07 06:28] LABS: HEMATOCRIT 27.6 % (42.0-54.0); HEMOGLOBIN 9.2 g/dL (13.5-17.5); MCH 32.7 pg (26.0-34.0); MCHC 33.3 g/dL (31.0-37.0); MCV 98.2 fL (80.0-100.0); MEAN PLATELET VOLUME 9.2 fL (7.4-10.4); RBC 2.81 10x6/uL (4.20-6.10); RDW 15.1 % (11.5-14.5); WBC 9.3 10x3/uL (4.8-10.8)
[2016-11-07 06:36] LABS: ALBUMIN 2.3 g/dL (3.4-5.0); ALKALINE PHOSPHATASE 75 U/L (46-116); ALT (SGPT) 81 U/L (10-68); BILIRUBIN - TOTAL 0.55 mg/dL (0.2-1.3); CALC OSMOLALITY 280 mosm/kg (275-300); CARBON DIOXIDE 27.8 mmol/L (21.0-32.0); CHLORIDE - SERUM 105 mmol/L (98-107); CREATININE - SERUM 0.9 mg/dL (0.6-1.3); GLUCOSE 99 mg/dL (74-106); POTASSIUM - SERUM 4.5 mmol/L (3.5-5.1); PROTEIN - SERUM 5.8 g/dL (6.4-8.2); SODIUM 140 mmol/L (136-145); UREA NITROGEN 17 mg/dL (7-18); eGFR NON AFRICAN AMERICAN 90 mL/min (90-120)
--- NOTE | 2016-11-07 14:40 | NUR ---
Patient Name: CHAVO FAN Encounter No: [id number] : 1950 Primary Insurance: [employer] HLTH EXCHANGE Anticipated DC Date: 11-04-2016 Planned Disposition: Home DCP follow-up note: Patient and family in agreement with discharge plan. No changes to plan. Case management will follow and assist as needed. Dorie Mcclure
--- NOTE | 2016-11-07 19:15 | NUR ---
SHIFT ASSESSMENT COMPLETE, SEE FLOWSHEET FOR DETAILS. PATIENT A&O X4, UAFIB ON MONITOR, BP STABLE. TPM VVI 50, SENSING. DENIES NEED AT THIS TIME, AND BROTHER AT BEDSIDE, CL IN REACH. WILL MONITOR.
--- NOTE | 2016-11-07 21:00 | NUR ---
NIGHT MEDS GIVEN WITHOUT DIFFICULTY. DENIES NEED.
--- NOTE | 2016-11-07 23:05 | NUR ---
REASSESSMENT COMPLETE, NO CHANGES FROM PREVIOUS ASSESSMENT. A-FIB ON MONITOR WITH RATE FROM 96-116. OTHER VSS. DENIES NEED, WILL MONITOR.
[2016-11-08] VITALS (24 sets, daily range): BP systolic 100–131; BP diastolic 60–84
--- NOTE | 2016-11-08 01:05 | NUR ---
RESTING WITH EYES CLOSED. AFIB ON MONITOR, TPM SENSING. VSS, WILL MONITOR.
--- NOTE | 2016-11-08 03:00 | NUR ---
REASSESSMENT COMPLETE, SEE FLOWSHEET. VSS.
--- NOTE | 2016-11-08 04:55 | NUR ---
BACK FROM XRAY, TOLERATED WELL. UP AND CHAIR AND PLACED ON MONITOR. VSS.
[2016-11-08 06:12] LABS: HEMATOCRIT 29.8 % (42.0-54.0); HEMOGLOBIN 9.7 g/dL (13.5-17.5); MCH 32.3 pg (26.0-34.0); MCHC 32.6 g/dL (31.0-37.0); MCV 99.3 fL (80.0-100.0); MEAN PLATELET VOLUME 9.4 fL (7.4-10.4); RDW 15.4 % (11.5-14.5); WBC 11.2 10x3/uL (4.8-10.8)
[2016-11-08 06:27] LABS: ALBUMIN 2.5 g/dL (3.4-5.0); ALKALINE PHOSPHATASE 78 U/L (46-116); ALT (SGPT) 81 U/L (10-68); CALC OSMOLALITY 276 mosm/kg (275-300); CALCIUM 8.2 mg/dL (8.5-10.1); CARBON DIOXIDE 24.6 mmol/L (21.0-32.0); CHLORIDE - SERUM 103 mmol/L (98-107); CREATININE - SERUM 0.9 mg/dL (0.6-1.3); GLUCOSE 105 mg/dL (74-106); POTASSIUM - SERUM 4.6 mmol/L (3.5-5.1); SODIUM 137 mmol/L (136-145); UREA NITROGEN 20 mg/dL (7-18); eGFR NON AFRICAN AMERICAN 90 mL/min (90-120)
--- NOTE | 2016-11-08 07:00 | NUR ---
TPM BATTERY CHANGED.
--- NOTE | 2016-11-08 10:01 | NUR ---
Nutrition Follow Up: Pt is eating 93% meal avg on an AHA diet. +BM 11/07/16. Wt stable. Meds and labs reviewed. Rec continue current diet. RD following.
--- NOTE | 2016-11-08 19:15 | NUR ---
SHIFT ASSESSMENT COMPLETE, SEE FLOWSHEET FOR COMPLETE DETAILS. PATIET A&OX4, SITTING UP IN CHAIR, AT BEDSIDE. AFIB ON MONITOR, RATE BETWEEN 100-115. VSS. TPM VVI 50, SENSING. RIKKI'S AND SCD'S ON, CL IN REACH. WILL MONITOR.
--- NOTE | 2016-11-08 20:50 | NUR ---
NIGHT MEDS GIVEN, DENIES FURTHER NEED. TRANSFERED TO BED INDEPENDENTLY. WILL MONITOR.
--- NOTE | 2016-11-08 23:05 | NUR ---
REASSESSMENT COMPLETE, NO ACUTE CHANGES. PATIENT RESTING WELL, AFIB ON MONITOR, RATE 98-110. VSS, WILL MONITOR.
[2016-11-09] VITALS (24 sets, daily range): BP systolic 94–128; BP diastolic 63–84
--- NOTE | 2016-11-09 01:05 | NUR ---
EYES CLOSED, VSS, RR EVEN/NONLABOED.
--- NOTE | 2016-11-09 03:05 | NUR ---
REASSESSMENT COMPLETE, A-FIB ON MONITOR, SEE FLOWSHEET FOR DETAILS. DENIES NEED.
--- NOTE | 2016-11-09 04:25 | NUR ---
BACK FROM XRAY, TOLERATED WELL. UP TO CHAIR. VSS.
--- NOTE | 2016-11-09 05:06 | NUR ---
TPM DRESSING CHANGED. WIRES INTACT, INCISIONS WNL.
[2016-11-09 06:23] LABS: HEMATOCRIT 29.4 % (42.0-54.0); HEMOGLOBIN 9.7 g/dL (13.5-17.5); MCH 32.7 pg (26.0-34.0); MEAN PLATELET VOLUME 9.1 fL (7.4-10.4); RBC 2.97 10x6/uL (4.20-6.10); RDW 15.4 % (11.5-14.5); WBC 10.3 10x3/uL (4.8-10.8)
[2016-11-09 06:43] LABS: ALBUMIN 2.6 g/dL (3.4-5.0); ALKALINE PHOSPHATASE 83 U/L (46-116); ALT (SGPT) 66 U/L (10-68); BILIRUBIN - TOTAL 0.68 mg/dL (0.2-1.3); CALC OSMOLALITY 269 mosm/kg (275-300); CALCIUM 8.1 mg/dL (8.5-10.1); CARBON DIOXIDE 24.2 mmol/L (21.0-32.0); CHLORIDE - SERUM 102 mmol/L (98-107); CREATININE - SERUM 0.9 mg/dL (0.6-1.3); GLUCOSE 105 mg/dL (74-106); POTASSIUM - SERUM 4.6 mmol/L (3.5-5.1); PROTEIN - SERUM 6.2 g/dL (6.4-8.2); SODIUM 134 mmol/L (136-145); UREA NITROGEN 19 mg/dL (7-18); eGFR NON AFRICAN AMERICAN 90 mL/min (90-120)
--- NOTE | 2016-11-09 17:32 | NUR ---
0715-RECIEVED AWAKE AND ALERT-AMBULATED TO RESTROOM-COMPLETE AM CARE DONE-IN AFIB ON MONITOR--AMBULATED TO CHAIR- 1030-AMBULATING IN HALLWAY WITH PHYSICAL THERAPY-TOLERATING WELL 1130-DR CORDOVA AT [facility]-ORDERS RECIEVED AND NOTED 1200-CORDARONE 150MG IV BOLUS STARTED IN L UPPER ARM ORDERED 1230-PHARMACY NOTIFIED OF NEED FOR CORDARONE IV GTT 1315-CORDARONE 1MG/MIN FOR 10HRS STARTED VIA PUMP ORDERED 1400-AMBULATING IN UNIT WITH 1700-SITTING UP IN CHAIR-AFIB ON MONITOR
--- NOTE | 2016-11-09 19:10 | NUR ---
PT AOX4, DENIES PAIN AT THIS TIME. RESPIRATIONS EVEN AND UNLABORED. SPO2 95 ON ROOM AIR. LUNG SOUNDS CLEAR. HR UNCONTROLLED AFIB ON MONITOR, CORDORONE GTT INFUSING. PERIPHERAL PULSES PRESENT. BOWEL SOUNDS ACITVE IN ALL QUADRANTS. REPOSITIONS SELF INDEPENDENTLY. DENIES ANY NEEDS AT THIS TIME. CALL LIGHT AND BEDSIDE TABLE WITHIN PT REACH. CPOC.
--- NOTE | 2016-11-09 21:10 | NUR ---
HS MEDS GIVEN, FRESH WATER TO BEDSIDE. NO C/O PAIN OR S/S OF DISTRESS. RESTING COMFORTABLY. CALL LIGHT AND BEDSIDE TABLE WITHIN PT REACH. CPOC.
--- NOTE | 2016-11-09 23:00 | NUR ---
REASSESSMENT COMPLETE, SEE FLOWSHEET FOR ALL FINDINGS. IS/COUGH/DB WITH GOOD EFFORT. NO C/O PAIN, NO S/S OF DISTRESS. DENIES NEEDS AT THIS TIME. CALL LIGHT AND BEDSIDE TABLE WITHIN PT REACH. CPOC.
[2016-11-10] VITALS (24 sets, daily range): BP systolic 91–165; BP diastolic 53–89
--- NOTE | 2016-11-10 03:50 | NUR ---
BACK FROM XRAY, TOLERATED WELL. COMPLETE LINEN CHANGE PROVIDED. FRESH WATER TO BEDSIDE. NO S/S OF DISTRESS AT THIS TIME. DENIES FURTHER NEEDS. CALL LIGHT AND BEDSIDE TABLE WITHIN PT REACH. CPOC.
[2016-11-10 06:14] LABS: HEMATOCRIT 28.3 % (42.0-54.0); HEMOGLOBIN 9.3 g/dL (13.5-17.5); MCH 32.7 pg (26.0-34.0); MCHC 32.9 g/dL (31.0-37.0); MCV 99.6 fL (80.0-100.0); MEAN PLATELET VOLUME 9.1 fL (7.4-10.4); RBC 2.84 10x6/uL (4.20-6.10); RDW 15.6 % (11.5-14.5); WBC 9.9 10x3/uL (4.8-10.8)
[2016-11-10 06:32] LABS: ALBUMIN 2.4 g/dL (3.4-5.0); ALKALINE PHOSPHATASE 81 U/L (46-116); ALT (SGPT) 56 U/L (10-68); BILIRUBIN - TOTAL 0.77 mg/dL (0.2-1.3); CALC OSMOLALITY 267 mosm/kg (275-300); CALCIUM 7.8 mg/dL (8.5-10.1); CARBON DIOXIDE 24.9 mmol/L (21.0-32.0); CHLORIDE - SERUM 102 mmol/L (98-107); CREATININE - SERUM 0.9 mg/dL (0.6-1.3); GLUCOSE 99 mg/dL (74-106); POTASSIUM - SERUM 4.5 mmol/L (3.5-5.1); SODIUM 133 mmol/L (136-145); UREA NITROGEN 19 mg/dL (7-18); eGFR NON AFRICAN AMERICAN 90 mL/min (90-120)
--- NOTE | 2016-11-10 10:46 | NUR ---
0845-PT AMBULATING WITH PHYSICAL THERAPY-2ND HALF OF PLANNED 500 FT [id number]-298-PLACED PT IN WHEELCHAIR AND RETURNED TO RM-NOTED RR 42-[id number] 99-ROOM AIR-PLACED TO RM [id number] WARREN NOTIFIED-NO FURTHER ORDERS AT THIS TIME-REMAINS ROOM AIR-AFIB 110-120-RR DECREASED T0 22-PT AGREEABLE TO BRP AND UP IN CHAIR AT THIS TIME 0876-HQYC-74.7-ENCOURAGED CONTINUED INCENTIVE SPIROMETRY-NOTED ABSENT L SIDED LOWER LOBE -DIMINISHED L UPPER LOBE-NO RHONCHI AUDIBLE-R SIDE CLR 1045-RESP RX IN PROGRESS-KBRN
--- NOTE | 2016-11-10 19:00 | NUR ---
REPORT RECIEVED. ASSESSMENT COMPLETED. SEE FLOW SHEET FOR FURTHER DETAILS. TPM SENSING AT A RATE OF 50 VMA OF 10 AND SENSITIVITY OF 0.8. WILL CONTINUE TO MONITOR PT.
--- NOTE | 2016-11-10 19:44 | NUR ---
1600-MEDIASTINAL CHEST DRG CHANGED-INCISION LINE CLEAN WITH NO DRAINAGE AND WELL APPROXIMATED-PACER WIRES INTACT-INSERTION POINTS INTACT NIBP IN L LEG
--- NOTE | 2016-11-10 21:00 | NUR ---
AT BEDSIDE. UPDATE PROVIDED. WILL CONTINUE TO MONITOR PT.
--- NOTE | 2016-11-10 23:00 | NUR ---
REASSESSMENT COMPLETED NO ACUTE CHANGES. WILL CONTINUE TO MONITOR PT.
[2016-11-11] VITALS (22 sets, daily range): BP systolic 96–150; BP diastolic 53–100
--- NOTE | 2016-11-11 03:00 | NUR ---
REASSESSMENT COMPLETED. NO CHANGES AT THIS TIME. POSITIONED PT FOR COMFORT WILL CONTINUE TO MONITOR PT.
--- NOTE | 2016-11-11 05:00 | NUR ---
PT UP AND TO THE CHAIR. POSITIONED FOR COMFORT WILL CONTINUE TO MONITOR.
[2016-11-11 06:42] LABS: HEMOGLOBIN 9.8 g/dL (13.5-17.5); MCH 32.7 pg (26.0-34.0); MCHC 32.7 g/dL (31.0-37.0); MEAN PLATELET VOLUME 9.3 fL (7.4-10.4); RDW 15.8 % (11.5-14.5); WBC 10.1 10x3/uL (4.8-10.8)
[2016-11-11 07:19] LABS: ALBUMIN 2.7 g/dL (3.4-5.0); ALKALINE PHOSPHATASE 79 U/L (46-116); ALT (SGPT) 48 U/L (10-68); CALC OSMOLALITY 271 mosm/kg (275-300); CALCIUM 8.5 mg/dL (8.5-10.1); CARBON DIOXIDE 24.8 mmol/L (21.0-32.0); CHLORIDE - SERUM 102 mmol/L (98-107); CREATININE - SERUM 0.9 mg/dL (0.6-1.3); GLUCOSE 101 mg/dL (74-106); POTASSIUM - SERUM 4.4 mmol/L (3.5-5.1); PROTEIN - SERUM 6.3 g/dL (6.4-8.2); SODIUM 135 mmol/L (136-145); UREA NITROGEN 17 mg/dL (7-18); eGFR NON AFRICAN AMERICAN 90 mL/min (90-120)
--- NOTE | 2016-11-11 08:00 | NUR ---
SHIFT ASSESSMENT COMPLETE. PATIENT DENIES ANY NEEDS, IS AT BEDSIDE.
--- NOTE | 2016-11-11 10:03 | NUR ---
NUTRITION F/U CHART REVIEWED. SPOKE WITH PT AND NURSING. GOOD INTAKE ADA DIET. WILL CONTINUE TO PROVIDE DIET, MONITOR PO INTAKE. RD FOLLOWING
--- NOTE | 2016-11-11 10:13 | NUR ---
DR. FARFAN IN TO SEE PATIENT. -
--- NOTE | 2016-11-11 11:37 | NUR ---
PHYSICAL THERAPY IN ROOM TO WALK PATIENT.
--- NOTE | 2016-11-11 13:13 | NUR ---
PATIENT IS STILL SITTING UP IN CHAIR, DECLINES ANY NEEDS AT THIS TIME. CALL LIGHT WITHIN REACH, BED IN LOW POSITION. AT BEDSIDE.
--- NOTE | 2016-11-11 14:47 | NUR ---
KARL ROME RN BY TO CHECK MIDLINE IN UPPER LEFT ARM.
--- NOTE | 2016-11-11 15:10 | NUR ---
DR. CORDOVA IN TO SEE PATIENT, IS ALSO AT BEDSIDE.
--- NOTE | 2016-11-11 15:15 | NUR ---
FINN RN IN PATIENT ROOM TO PULL PACEMAKER. DRESSING REMOVED STERNAL INCISION WITHOUT REDNESS OR EDEMA NOTED, AND INCISION IS WELL APPROXIMATED. BANDAIDE X2 TO PACEMAKER WIRE INCISIONS.
--- NOTE | 2016-11-11 16:24 | NUR ---
PATIENT IS AFIB AT 98, NO SOB NOTED, AND SPO2 IS 94%.
--- NOTE | 2016-11-11 19:00 | NUR ---
REPORT RECEIVED AND ASSESSMENT COMPETED. SEE FLOWSHEET FOR FULL DETAILS. PT IS POST OP CABG OF DR CORDOVA.TPM WAS REMOVED DURING DAY SHIFT. FAMILY AT BEDSIDE. UPDATED ON STATUS. VSS. WILL MONITOR.
--- NOTE | 2016-11-11 21:00 | NUR ---
MD CONTACTED REGARDING PA & LAT ORDERS. WILL NOT RENEW ORDER FURTHER PER DR CORDOVA. 2100 MEDS GIVEN. VSS. WILL CONTINUE TO MONITOR
--- NOTE | 2016-11-11 23:00 | NUR ---
REASSESSMENT COMPLETED SEE FLOWSHEET FOR FULL DETAILS. PT TEMP HAS COME DOWN FROM 37.9 TO 37.6 AT THIS TIME. STILL IN ATRIAL FIB UNCONTROLLED. VSS. WILL CONTINUE TO MONITOR.
[2016-11-12] VITALS (7 sets, daily range): BP systolic 89–117; BP diastolic 55–67
--- NOTE | 2016-11-12 01:00 | NUR ---
PT HR DOWN TO 96 AT THIS TIME, THOUGH STILL WILL RAISE TO AROUND 110 AT TIMES. B/P SURRENTLY 105/67. WILL CONTINUE TO MONITOR.
--- NOTE | 2016-11-12 03:00 | NUR ---
REASSESSMENT COMPLETED. SEE FLOWSHEET FOR FULL DETAILS. PT HR NOW 88 THOUGH RAPIDLY CHANGES WITH FIB.B/P 107/63. VSS. WILL CONTINUE TO MONITOR
--- NOTE | 2016-11-12 05:05 | NUR ---
PT REMAINS IN CONTROLLED AFIB AT THIS TIME. NO CHANGES IN STATUS AT THIS TIME. VSS. WILL CONTINUE TO MONITOR.
[2016-11-12 06:12] LABS: HEMATOCRIT 28.9 % (42.0-54.0); HEMOGLOBIN 9.3 g/dL (13.5-17.5); MCH 32.3 pg (26.0-34.0); MCHC 32.2 g/dL (31.0-37.0); MCV 100.3 fL (80.0-100.0); RBC 2.88 10x6/uL (4.20-6.10); RDW 15.4 % (11.5-14.5); WBC 9.1 10x3/uL (4.8-10.8)
[2016-11-12 06:32] LABS: ALBUMIN 2.4 g/dL (3.4-5.0); ALKALINE PHOSPHATASE 74 U/L (46-116); ALT (SGPT) 41 U/L (10-68); CALC OSMOLALITY 272 mosm/kg (275-300); CALCIUM 8.2 mg/dL (8.5-10.1); CARBON DIOXIDE 26.8 mmol/L (21.0-32.0); CHLORIDE - SERUM 102 mmol/L (98-107); CREATININE - SERUM 0.9 mg/dL (0.6-1.3); GLUCOSE 106 mg/dL (74-106); POTASSIUM - SERUM 4.3 mmol/L (3.5-5.1); SODIUM 135 mmol/L (136-145); eGFR NON AFRICAN AMERICAN 90 mL/min (90-120)
[2016-11-12 06:45] LABS: UREA NITROGEN 22 mg/dL (7-18)
--- NOTE | 2016-11-12 07:44 | NUR ---
0700 AM ASSESMENT DOCUMENTED PER FLOWSHEET. PATIENT AMBULATING FROM BATHROOM WITH ASSIST FROM . INDEPENDENT SHOWER COMPLETE. BACK TO BEDSIDE CHAIR, ALL VITALS WNL. REMAINS IN CONTROLLED FIB, RATE 94. SITTING IN CHAIR EATING BREAKFAST.
--- NOTE | 2016-11-12 07:57 | NUR ---
DR. CORDOVA AT BEDSIDE, WILL D/C HOME LATER TODAY
--- NOTE | 2016-11-12 09:17 | NUR ---
PATIENT REMAINS IN BEDSIDE CHAIR, ALL AM MEDS GIVEN PER MAR. AT BEDSIDE.
[2016-11-12] MEDS ORDERED: ELIQUIS5 MG PO (10:05)
[2016-11-12] MEDS ORDERED: CORDARONE200 MG PO (10:11)
[2016-11-12] MEDS ORDERED: CARDIZEM 90 MG90 MG PO (10:11)
[2016-11-12] MEDS ORDERED: LASIX40 MG PO (10:13)
--- NOTE | 2016-11-12 10:35 | NUR ---
SHRAVAN BRISENO AT BEDSIDE REMOVING CHARLES FROM LEG.
--- NOTE | 2016-11-12 10:48 | NUR ---
MIDLINE D/C FROM LEFT UPPER ARM WITH TIP INTACT. PRESSURE HELD AND DRESSING APPLIED.
--- NOTE | 2016-11-12 12:03 | NUR ---
UP AMBULATING WITH AT SIDE. BACK TO BEDSIDE CHAIR. UP TO BEDSIDE TO DRESS WITH ASSIST FROM .
--- NOTE | 2016-11-12 12:21 | NUR ---
D/C INSTRUCTIONS DISCUSSED WITH PATIENT AND AT BEDSIDE. WHEELED OUT VIA WHEELCHAIR WITH ALL BELONGINGS.
--- NOTE | 2016-11-12 12:24 | NUR ---
Patient Name: CHAVO FAN Encounter No: [id number] : 1950 Primary Insurance: [employer] Anticipated DC Date: 11-04-2016 Planned Disposition: Home DCP follow-up note: CM met with patient & spouse. Questions regarding discharge answered. Patient and family in agreement with discharge plan. No changes to plan. No needs identified or verbalized. Discharge home today. Dorie Mcclure
== END 2016-11-12 12:22 | disposition home or self-care (01) | DRG 236 ==
LOC: D.CVICU 05:00 → D.SDCHOLD 05:00 → D.CVICU 14:18
PROVIDERS: Family Medicine; ADMIT Internal Medicine Cardiovascular Disease
PROC: 021109W Bypass Coronary Artery, Two Arteries from Aorta with Autologous Venous Tissue, Open Approach (ICD-10-PCS; 2016-10-28)
PROC: 06BP0ZZ Excision of Right Saphenous Vein, Open Approach (ICD-10-PCS; 2016-10-28)
PROC: 5A1221Z Performance of Cardiac Output, Continuous (ICD-10-PCS; 2016-10-28)
PROC: B245ZZ4 Ultrasonography of Left Heart, Transesophageal (ICD-10-PCS; 2016-10-28)
PROC: 02100AC Bypass Coronary Artery, One Artery from Thoracic Artery with Autologous Arterial Tissue, Open Approach (ICD-10-PCS; principal; 2016-10-28 07:30)
PROC: 05HB33Z Insertion of Infusion Device into Right Basilic Vein, Percutaneous Approach (ICD-10-PCS; 2016-11-07)
DX: I25.119 Atherosclerotic heart disease of native coronary artery with unspecified angina pectoris (principal); I48.91 Unspecified atrial fibrillation; I10 Essential (primary) hypertension; E78.5 Hyperlipidemia, unspecified; M06.9 Rheumatoid arthritis, unspecified; Z87.891 Personal history of nicotine dependence; D64.9 Anemia, unspecified; R00.0 Tachycardia, unspecified; G47.30 Sleep apnea, unspecified; E66.9 Obesity, unspecified; Z68.35 Body mass index [BMI] 35.0-35.9, adult

== ENCOUNTER → 2016-11-28 09:38 | Outpatient (CLI) | payer BC ==
[2016-10-30 10:53] VITALS: BMI 38.3
[~2016-11-28 09:38] MED LIST changes: +CARDIZEM 90 MG90 MG PO; +CORDARONE200 MG PO; +ELIQUIS5 MG PO; +LASIX40 MG PO
[2016-11-28 10:10] LABS: CALC OSMOLALITY 278 mosm/kg (275-300); CALCIUM 8.8 mg/dL (8.5-10.1); CARBON DIOXIDE 25.5 mmol/L (21.0-32.0); CHLORIDE - SERUM 104 mmol/L (98-107); CREATININE - SERUM 0.9 mg/dL (0.6-1.3); GLUCOSE 102 mg/dL (74-106); POTASSIUM - SERUM 4.1 mmol/L (3.5-5.1); SODIUM 137 mmol/L (136-145); UREA NITROGEN 26 mg/dL (7-18); eGFR NON AFRICAN AMERICAN 90 mL/min (90-120)
== END | disposition home or self-care (01) ==
LOC: D.LAB 09:38 → D.RAD 11:00
PROVIDERS: Internal Medicine Cardiovascular Disease
DX: D64.9 Anemia, unspecified (principal); J90 Pleural effusion, not elsewhere classified

== ENCOUNTER 2017-01-14 11:00 | Outpatient (CLI) | payer BC ==
[~2017-01-14] VITALS: Ht 172.7 cm; Wt 103.2 kg
--- NOTE | ~2017-01-14 | HEMODYNAMI ---
PATIENT:CHAVO FAN MEDICAL RECORD: [id number] : 54 LOCATION:D.CAT ADMISSION DATE: 01/14/17 Generatedon:01/14/201714:32 Patient name: CHAVO FAN Patient #: [id number] SSN: : 1950 Date of study: 01/14/2017 Page: Of Hemodynamic Procedure Report Patient Data Patient Demographics Procedure consent was obtained First Name: CHAVO Gender: Male Last Name: MENG : 1950 [facility] Initial: ALF Age: 66 year(s) Patient #: [id number] Race: Unknown Additional ID: [id number] Contact details Address: [address] [place] [address] State: [place] City: [place] Zip code: [address] Past Medical History Allergies: No known allergies Admission Admission Data Admission Date: 01/14/2017 Admission Time: 11:00 Procedure Procedure Types Cath Procedure Diagnostic Procedure Cardioversion Procedure Description Procedure Date Procedure Date: 01/14/2017 Procedure Start Time: 14:29 Procedure End Time: 14:31 Procedure Staff Name Function Alf Riley MD Performing Physician Michael Boggs RN Nurse Sanjay Beltre RT Monitor [place] RT Monitor Omkar Gayle CRNA Additional personnel Procedure Data Cath Procedure Fluoroscopy Diagnostic fluoroscopy Total fluoroscopy Time: 0 time: 0 min min Diagnostic fluoroscopy Total fluoroscopy dose: 0 dose: 0 mGy mGy Hemodynamics Rest Heart Rate: 85 (bpm) Snapshots Pre Cath Intra NCS Post Cath Vital Signs Time Heart Resp SPO2 etCO2 NIBP Rhythm Pain Sedation Rate (ipm) (%) (mmHg) (mmHg) Status Level (bpm) 14:28:14 84 12 97 26.2 No Cuff NSR 0 (11) 10(A) , No pain Procedure Log Time Note 14:00:06 Michael Boggs RN sent for patient. Start room use. 14:13:07 Time tracking: Regular hours 14:13:11 Plan of Care:Hemodynamics will remain stable., Cardiac rhythm will remain stable., Comfort level will be maintained., Respiratory function will remain adequate., Patient/ family verbilizes understanding of procedure., Procedure tolerated without complication., Recovers from procedure without complications.. 14:19:16 Patient arrived from Pre/Post Procedure Room to [facility] 3. Patient remains on bed/stretcher for procedure. 14:19:18 Warm blankets applied, and luis hugger turned on for patient comfort. 14:19:19 Correct patient and procedure confirmed by team. 14:19:20 Signed procedure consent form obtained from patient. 14:19:21 ECG and BP/O2 sat monitors applied to patient. 14:20:45 Omkar Gayle CRNA present and monitoring patient for TIVA. 14:25:47 Previous problem with sedation/anesthesia? No ? 14:25:48 Snore? Yes 14:25:49 Sleep apnea? Yes 14:25:51 Deviated septum? No 14:25:52 Opens mouth fully? Yes 14:25:52 Sticks out tongue? Yes 14:25:55 Airway obstruction? No ? 14:26:06 Dentures? Yes partial 14:26:24 Is patient on blood thinner?Yes 14:27:24 Vital chart was started 14:27:29 Baseline sample Acquired. 14:27:34 Full Disclosure recording started 14:27:44 H&P Date Dictated: 01/01/2017 Within 30 days and on chart., H&P Addendum completed by physician on day of procedure. (MUST COMPLETE FOR ALL OUTPATIENTS). 14:27:46 Pre-procedure instructions explained to patient. 14:27:46 Pre-op teaching completed and patient verbalized understanding. 14:27:49 Family in patients room. 14:27:52 Patient NPO since Midnight. 14:29:36 pt. in sinus rhythm. per Dr. Riley. procedure ended. 14:29:44 Procedure started. 14:29:47 Baseline sample Acquired. 14:30:04 Procedure ended.(Physican Out) 14:30:26 Fluoroscopy time 00.00 minutes. 14:30:28 Fluoroscopy dose: 0 mGy 14:30:28 Flurop Dose total: 0 14:30:32 Sharps counted by scrub and verified by R.N. 14:30:39 Post procedure rhythm: sinus rhythm 14:30:43 Post procedure instruction explained to patient.Patient verbalizes understanding. 14::43 Patient needs reinforcement of post procedure teaching. 14:31:19 Procedure type changed to Cath procedure, Diagnostic procedure, Cardioversion 14:31:30 Vital chart was stopped 14:31:31 See physician's report for complete and final results. 14:31:45 Report given to Pre/Post Procedure Room. 14:31:49 Patient transfered to Pre/Post Procedure Room with Bed. 14:31:51 Procedure ended. 14:31:51 Full Disclosure recording stopped 14:32:24 End room use (Document Last) Signature Audit [place] Stage Time Signature Unsigned Intra-Procedure 01/14/2017 [place] 2:32:44 PM RT(R) Signatures Monitor : Sanjay Beltre RT Signature : Date : Time : Monitor : [place] Signature : RT Date : Time : [place] [id number] [facility] [address]
[2017-01-14 11:46] VITALS: BP 108/78; Ht 172.7 cm; Wt 103.2 kg
[2017-01-14 11:57] LABS: BASOPHILS 0.4 % (0-2); EOSINOPHILS 2.6 % (0-7); HEMATOCRIT 41.7 % (42.0-54.0); HEMOGLOBIN 14.3 g/dL (13.5-17.5); IMMATURE GRANULOCYTES 0.3 % (0-5); LYMPHOCYTES 16.3 % (15-50); MCH 33.4 pg (26.0-34.0); MCHC 34.3 g/dL (31.0-37.0); MCV 97.4 fL (80.0-100.0); MEAN PLATELET VOLUME 9.3 fL (7.4-10.4); MONOCYTES 9.4 % (2-11); RBC 4.28 10x6/uL (4.20-6.10); RDW 13.7 % (11.5-14.5); WBC 7.3 10x3/uL (4.8-10.8)
[2017-01-14 12:04] LABS: PLATELET COUNT 202 10x3/uL (130-400)
[2017-01-14 12:09] LABS: CALC OSMOLALITY 280 mosm/kg (275-300); CALCIUM 8.4 mg/dL (8.5-10.1); CARBON DIOXIDE 25.2 mmol/L (21.0-32.0); CHLORIDE - SERUM 104 mmol/L (98-107); CREATININE - SERUM 0.7 mg/dL (0.6-1.3); GLUCOSE 92 mg/dL (74-106); POTASSIUM - SERUM 5.4 mmol/L (3.5-5.1); SODIUM 137 mmol/L (136-145); UREA NITROGEN 31 mg/dL (7-18); eGFR NON AFRICAN AMERICAN > 90 mL/min (90-120)
[2017-01-14 12:11] LABS: INR 1.35 (0.85-1.17); PROTIME 16.6 SECONDS (11.6-15.0)
--- NOTE | 2017-01-14 14:35 | NUR ---
PT IN NSR UPON ARRIVAL TO FLOOR WORKER TRANSFER BAY. PROCEDURE CANCELLED BY DR AGUILAR. PT RETURNED TO CATH HOLDING AND SANDWICH SERVED.
--- NOTE | 2017-01-14 14:57 | NUR ---
PT DRESSED FOR DC TO HOME. REVIEWED INSTRUCTIONS AND PT VERBALIZES UNDERSTANDING. PT AMBULATORY UPON DC TO HOME WITH FAMILY AT SIDE. DENIES ANY C/O UPON DC TO HOME.
== END 2017-01-14 14:55 | disposition home or self-care (01) ==
LOC: D.CATH 11:00
PROVIDERS: Internal Medicine Interventional Cardiology
DX: I48.91 Unspecified atrial fibrillation (principal); Z01.810 Encounter for preprocedural cardiovascular examination; Z01.811 Encounter for preprocedural respiratory examination; Z01.812 Encounter for preprocedural laboratory examination; Z53.9 Procedure and treatment not carried out, unspecified reason

== ENCOUNTER 2017-12-10 10:56 | Outpatient (CLI) | payer MEDICARE, OTHER ==
[~2017-12-10] VITALS: Ht 172.7 cm; Wt 105.9 kg
--- NOTE | ~2017-12-10 | OP ---
PATIENT NAME: CHAVO FAN MEDICAL RECORD: [id number] :[birth year] LOCATION:D.CAT ADMISSION DATE: SURGEON: SUNDAY AGUILAR MD DATE OF OPERATION: 12/10/2017 PROCEDURE: Cardioversion. DESCRIPTION OF PROCEDURE: After general sedation via TIVA anesthesia, a single synchronized shock was successful restoring atrial fibrillation to normal sinus rhythm. IMPRESSION: Successful cardioversion. COMPLICATIONS: None. DISPOSITION: To the floor, stable. TRANSINT:[id number] Voice Confirmation ID: [id number] DOCUMENT ID: [id number] SUNDAY AGUILAR MD at 2229 CC: [id number] DICTATION DATE: 12/10/17 1320 DEODORIZER OPERATOR: 12/10/17 1411 [facility] CLI 12/10/[address] [address]
--- NOTE | ~2017-12-10 | TEE ---
PATIENT:CHAVO FNA MEDICAL RECORD: [id number] [facility] AGE OF PATIENT: 67 ADMISSION DATE: 12/10/17 SEX: M REFERRING PHYSICIAN: INTERPRETING PHYSICIAN: SUNDAY AGUILAR MD TRANSESOPHAGEAL ECHOCARDIOGRAM Date: 12/10/17 ERI CHARGE Y INDICATIONS: A-FIB - PRE CARDIOVERSION R/O LA APPENDAGE CLOT PREMEDICATIONS: PATIENT'S RESPONSE PROCEDURE DOPPLER MEASUREMENTS: LVIT LA PA RA LVOT RVOT Asc. Ao AV Gradient Peak AV Mean AV Area MV Gradient Peak MV Mean MV Area INTERPRETATION: Doppler: 2-D: COLOR FLOW DOPPLER NORMAL SALINE STUDY: MISCELLANOUS: DIAGNOSIS: PLAN: Compound Filler:3 Dr. Riley Renal Technician: 1 MAC LEONARDO COMMENTS: DATE OF SERVICE: 12/10/2017 After general sedation via TIVA via anesthesia, transesophageal Omniplane probe was placed into distal esophagus and proximal stomach without difficulty. FINDINGS: LVH is present. LV internal dimension is normal. Wall motion is normal. EF is greater than equal to 55%. Aortic valve is tricuspid with good valve excursion. No significant AI. Left atrium is well visualized, appears normal. Left atrial appendage is well visualized. No evidence of thrombus and TRANSESOPHAGEAL ECHOCARDIOGRAM REPORT [id number] CHAVO FAN GRE good contractility via Doppler. Mitral valve shows some prolapse of the anterior leaflet and moderate MR. Right-sided chamber is normal. Trace TR. TRANSINT:[id number] Voice Confirmation ID: [id number] DOCUMENT ID: [id number] at 1418 CC: [id number] DICTATION DATE: 12/10/17 1317 SEARCH CONSULTANT: 12/10/17 2301 [facility] CLI 12/10/17 [place] [id number] [place] [address]
--- NOTE | ~2017-12-10 | HEMODYNAMI ---
PATIENT:CHAVO FAN MEDICAL RECORD: [id number] : 54 LOCATION:[facility] ADMISSION DATE: 12/10/17 Generatedon:12/10/201713:24 Patient name: CHAVO FAN Patient #: [id number] SSN: : 1950 Date of study: 12/10/2017 Page: Of Hemodynamic Procedure Report Patient Data Patient Demographics Procedure consent was obtained First Name: CHAVO Gender: Male Last Name: MENG : 1950 [facility] Initial: ALF Age: 67 year(s) Patient #: [id number] Race: Unknown Additional ID: [id number] Contact details [address]: [address] [place] [address] State: [place] City: [place] Zip code: [address] Past Medical History Allergies: No known allergies Admission Admission Data Admission Date: 12/10/2017 Admission Time: 10:56 Height (in.): 69 BSA: 2.22 (m2) Height (cm.): 175.26 BMI: 34.85 (kg/m2) Weight (lbs.): 236 Weight (kg.): 107.05 Procedure Procedure Types Cath Procedure Diagnostic Procedure Cardioversion External ERI Procedure Description Procedure Date Procedure Date: 12/10/2017 Procedure Start Time: 13:08 Procedure End Time: 13:24 Procedure Staff Name Function Alf Dobbins MD Performing Physician [place] RT Monitor Thuan Cho RN Nurse Kaiser Gonzales CRNA Additional personnel Toby Leiva Chief Knowledge Officer Procedure Data Cath Procedure Estimated blood loss: 0 ml Procedure Complications No complications Hemodynamics Rest BSA: 2.22 (m2) O2 Consumption: Estimated: 251.69 (ml/min) O2 Consumption indexed : Estimated:113.37 (ml/min/m) Heart Rate: 61 (bpm) Snapshots Pre Cath Intra NCS Post Cath Vital Signs Time Heart Resp SPO2 etCO2 NIBP (mmHg) Rhythm Pain Sedation Rate (ipm) (%) (mmHg) Status Level (bpm) 12:55:17 84 22 96 28.6 121/65(87) NSR 0 (11) 10(A) , No pain 12:59:31 82 10 95 31.7 110/66(89) NSR 0 (11) 10(A) , No pain 13:03:41 76 10 94 31.7 100/67(86) NSR 0 (11) 10(A) , No pain 13:07:52 72 15 94 30.9 106/60(79) NSR 0 (11) 10(A) , No pain 13:12:52 82 12 92 13.5 Measuring NSR 0 (11) 10(A) , No pain 13:14:16 84 16 79 0 Time NSR 0 (11) 10(A) Exceeded , No pain 13:16:08 72 12 98 30.1 113/88(106) NSR 0 (11) 10(A) , No pain 13:21:07 69 9 96 34.6 Measuring NSR 0 (11) 10(A) , No pain 13:21:28 69 14 96 33.9 83/42(63) NSR 0 (11) 10(A) , No pain Procedure Log Time Note 12:42:58 Signed procedure consent form obtained from patient. 12:42:59 Time tracking: Regular hours (M-F 7:00 - 5:00) 12:43:03 Plan of Care:Hemodynamics will remain stable., Cardiac rhythm will remain stable., Comfort level will be maintained., Respiratory function will remain adequate., Patient/ family verbilizes understanding of procedure., Procedure tolerated without complication., Recovers from procedure without complications.. 12:43:05 Thuan Cho RN sent for patient. Start room use. 12:43:06 Diagnostic Cath status Elective 12:43:35 H&P Date Dictated: 12/02/2017 Within 30 days and on chart., H&P Addendum completed by physician on day of procedure. (MUST COMPLETE FOR ALL OUTPATIENTS). 12:43:41 Patient allergic to No known allergies 12:43:48 Patient Height : 69 inches 12:43:51 Patient Weight : 236 lbs 12:48:36 Patient arrived from Pre/Post Procedure Room to [facility]. Patient remains on bed/stretcher for procedure. 12:48:37 Warm blankets applied, and luis hugger turned on for patient comfort. 12:48:37 Correct patient and procedure confirmed by team. 12:48:38 ECG and BP/O2 sat monitors applied to patient. 12:54:07 Vital chart was started 12:54:18 Baseline sample Acquired. 12:54:23 Rhythm: atrial fibrillation 12:54:24 Full Disclosure recording started 12:54:24 Pre-procedure instructions explained to patient. 12:54:25 Pre-op teaching completed and patient verbalized understanding. 12:54:26 Family in patients room. 12:54:28 Patient NPO since Midnight. 12:54:30 Is patient on blood thinner?Yes 12:54:33 ACC The patient was administered the following blood thiners within the last 24 hours: Eliquis 12:54:34 Patient diabetic? No. 12:54:41 Snore? Yes 12:54:42 Sleep apnea? Yes 12:54:45 Previous problem with sedation/anesthesia? No ? 12:54:53 Deviated septum? No 12:54:55 Opens mouth fully? Yes 12:54:56 Sticks out tongue? Yes 12:54:59 Airway obstruction? No ? 12:55:02 Dentures? Yes IN 12:55:08 IV patent on arrival in left hand with 0.9% NaCl at O. 12:55:16 Alarms reviewed by R. N. 12:55:16 Sharps counted by scrub and verified by R.N. 13:00:26 Quick Combo opened to sterile field. 13:07:18 --------ALL STOP TIME OUT------ 13:07:18 Final Timeout: patient, procedure, and site verified with staff and physician. All members of the team are in agreement. 13:07:26 Physical assessment completed. ASA score P 2 - A patient with mild systemic disease as per Alf Dobbins MD. 13:07:31 Sedation plan: TIVA Medication:Propofol 13:07:49 Kaiser Gonzales CRNA present and monitoring patient for TIVA. 13:07:54 Toby Leiva Backwinder present for ERI. 13:08:02 Procedure started. 13:08:36 ERI started. 13:14:30 ERI completed. 13:14:31 Quick combo pads placed on patients chest and back. 13:15:00 Defibrillator synced and charged to 200 Joules. 13:15:15 Shock delivered. 13:15:26 Patient cardioverted to sinus rhythm . 13:15:39 Procedure ended.(Physican Out) 13:18:25 Post procedure rhythm: sinus rhythm 13:18:27 Estimated blood loss: 0 ml 13:18:28 Post procedure instruction explained to patient.Patient verbalizes understanding. 13:18:28 Patient needs reinforcement of post procedure teaching. 13:18:43 Procedure and supply charges have been captured, reviewed, submitted and are correct. 13:18:45 Procedure Complication : No complications 13:24:17 Vital chart was stopped 13:24:17 See physician's report for complete and final results. 13:24:19 Report given to Pre/Post Procedure Room. 13:24:22 Patient transfered to Pre/Post Procedure Room with Bed. 13:24:23 Procedure ended. 13:24:23 Full Disclosure recording stopped 13:24:26 End room use (Document Last) Device Usage Item Manufacture Quantity Catalog Hospital Part Current Minimal Lot# / Name Number Charge Number Stock Stock Akshat al# Code QualySense 1 [id number] Combo Signature Audit [place] Stage Time Signature Unsigned Intra-Procedure 12/10/2017 [place] 1:24:44 PM RT(R) Signatures Monitor : [place] Signature : RT Date : Time : [place] [id number]
[2017-12-10 12:11] VITALS: BP 127/75; Ht 172.7 cm; Wt 105.9 kg
[2017-12-10 12:42] LABS: BASOPHILS 0.6 % (0-2); EOSINOPHILS 3.1 % (0-7); HEMATOCRIT 39.5 % (42.0-54.0); IMMATURE GRANULOCYTES 0.1 % (0-5); LYMPHOCYTES 21.5 % (15-50); MCH 35.1 pg (26.0-34.0); MCHC 35.4 g/dL (31.0-37.0); MEAN PLATELET VOLUME 9.4 fL (7.4-10.4); NEUTROPHILS 65.7 % (40-80); PLATELET COUNT 203 10x3/uL (130-400); RBC 3.99 10x6/uL (4.20-6.10); RDW 12.3 % (11.5-14.5); WBC 6.8 10x3/uL (4.8-10.8)
[2017-12-10 12:54] LABS: CALC OSMOLALITY 282 mosm/kg (275-300); CALCIUM 8.4 mg/dL (8.5-10.1); CARBON DIOXIDE 25.4 mmol/L (21.0-32.0); CHLORIDE - SERUM 105 mmol/L (98-107); GLUCOSE 97 mg/dL (74-106); POTASSIUM - SERUM 4.2 mmol/L (3.5-5.1); SODIUM 140 mmol/L (136-145); UREA NITROGEN 23 mg/dL (7-18); eGFR NON AFRICAN AMERICAN 80 mL/min (90-120)
[2017-12-10 13:27] LABS: INR 1.28 (0.85-1.17); PROTIME 15.5 SECONDS (11.6-15.0)
== END 2017-12-10 14:40 | disposition home or self-care (01) ==
LOC: D.CATH 10:56
PROVIDERS: Internal Medicine Interventional Cardiology
DX: I48.91 Unspecified atrial fibrillation (principal)

== ENCOUNTER → 2018-06-24 09:04 | Outpatient (CLI) | payer MEDICARE, OTHER ==
[2017-12-10 12:11] VITALS: BMI 35.5
--- NOTE | ~2018-06-24 | EC ---
PATIENT:CHAVO FAN DATE OF SERVICE: 06/24/18 SEX: M MEDICAL RECORD: [id number] DATE OF : 54 [facility] AGE [facility] PATIENT: 67 ADMISSION DATE: 06/24/18 REFERRING PHYSICIAN: INTERPRETING PHYSICIAN: SUNDAY AGUILAR MD ECHOCARDIOGRAM REPORT ECHO CHARGES 4 ECHO COMPLETE Date: 06/24/18 CLINICAL DIAGNOSIS: ATRIAL FIB/CAD/HTN/CABG ECHOCARDIOGRAPHIC MEASUREMENTS (adult normal given) AC root (d.<3.7cm) 3.7 cm LV Septum d (<1.2 cm> 1.5 cm Valve Excursion 1.8 cm LV Septum (systole) 2.0 cm Left Atria (s.<4.0cm> 5.4 cm LVPW d(<1.2cm) 1.7 cm RV (d.<2.3cm) 4.7 cm LVPW (sytole) 1.9 cm LV diastole(<5.6CM) 5.4 cm MV E-F(>70mm/sec) cm LV systole 3.5 cm LVOT Diameter cm MV exc.(>10mm) 1.8 cm Est.ejection fraction (50-75%) % DOPPLER: LVIT cm/sec A 65.0 cm/sec E 100 cm/sec LA cm/sec RVSP 23 mmHg LVOT 94 cm/sec AOP1/2T m/s Asc. Ao 115 cm/sec RVOT 75 cm/sec RA cm/sec PA 106 cm/sec AV Gradient Peak 5.32 mmHg AV Mean 2.68 mmHg AV Area 2.4 cm MV Gradient Peak 6.94 mmHg MV Mean 2.09 mmHg MV Area cm COMMENTS: Member Of Congress: James OLIVER Hot Box Checker: 3 Dr. Riley TAPE# PACS Pericardial Effusion N DATE OF SERVICE: 06/24/2018 Adequate 2D echo, color flow, spectral Doppler, and M-Mode. LVH is present. LV internal dimension is normal. Wall motion is normal. EF is greater than or equal to 55%. Aortic valve is sclerosed without evidence of stenosis by Doppler interrogation. Left atrium is dilated at 4.7 cm. Mitral valve shows no prolapse. Trace MR. Right-sided chambers grossly normal. Trace TR. ECHOCARDIOGRAM REPORT [id number] CHAVO FAN TRANSINT:[id number] Voice Confirmation ID: [id number] DOCUMENT ID: [id number] SUNDAY AGUILAR MD CC: [id number] DICTATION DATE: 06/25/18 1302 PROJECT PROGRAM MANAGER: 06/25/18 1333 DEP CLI 06/24/18 [place] [id number] [place] [id number]
== END | disposition home or self-care (01) ==
LOC: D.HCCARDIO 09:04
PROVIDERS: ATTEND Internal Medicine Interventional Cardiology
DX: I48.91 Unspecified atrial fibrillation (principal)